=== PATIENT | female | born 1930 | race Caucasian/White ===

== ENCOUNTER 2017-03-15 13:32 | Inpatient (IN) ==
--- NOTE | 2017-03-15 14:24 | XRay Report ---
Exam: XR chest 1V portable Date: 03/15/2017 1:57 PM Indication: Altered mental status Comparison: 10/10/2016 Findings: AP portable a left base pleural effusion with a small effusion in the right chest along the minor fissure and right base present. There is obscuration of left hemidiaphragm. ASVD is present. Left upper arm stent present. Impression: 1. Increasing effusions present bilaterally with component of underlying cardiac decompensation CHF 2. Left-sided stents present in the upper arm. PROCEDURE INTERPRETED AT [facility] DEPARTMENT OF RADIOLOGY Final Report Signed by: Dr. Ran Evans
--- NOTE | 2017-03-15 14:33 | Emergency Department Note ---
Abigail Bautista Gwan, am scribing for, and in the presence of, Pedro Guadalupe MD 14:27 . Anayeli Bautista James D, MD, personally performed the services described in this documentation, ascribed by Javed Hayes in my presence, and it is both accurate and complete 431 . Arrival - Arrival Chief Complaint: Altered Mental Status Stated Complaint: possible stroke ED Nursing Triage Note: C/o confusion-onset upon waking this morning. Also reports generalized weakness and unable to walk. Mode of Arrival: Wheelchair Limitations: No Limitations Source: Patient, Family, Old Records Reviewed, RN Notes Reviewed Time Seen by Provider: 03/15/17 13:55 - History of Present Illness HPI Narrative: Patient is a 87 y/o female who presents to the ED for further evaluation for generalized weakness with an onset last night. Patient stated that her associated sxs have been lightheadedness upon standing up, the inability to walk and SOB. Patient family confirmed that pt has renal failure (dialysis M/W/F ), that pt dialyzed yesterday and that pt is followed by Dr. Miranda. Family continued to note that due to renal failure, pt does not void much. Patient denies any dysuria. Pt has a PMHx of CAD and HTN. Onset (ago): hour(s) Consistency: constant Severity: moderate Date of Last Menstrual Period: menopause Allergies/Adverse Reactions: Allergies Allergy/AdvReac Type Severity Reaction Status Date / Time propoxyphene Allergy ITCHING Verified 10/06/16 19:52 [From Darvocet-N 100] Home Medications: Home Medications Medication Instructions Recorded Confirmed Type Calcium Acetate 2 capsule PO TID W/MEALS 10/07/16 03/15/17 History Acetaminophen Tab [Tylenol Tab] 650 mg PO Q6H PRN #0 tablet 10/12/16 03/15/17 Rx Levothyroxine Tab [Synthroid Tab] 25 mcg PO DAILY@0700 #30 tablet 10/12/1603/15 Rx Tramadol HCl [Tramadol Tab] 50 mg PO Q6H PRN #30 tablet 10/12/16 03/15/17 Rx Metoprolol Tartrate Tab [Lopressor 25 mg PO QAM 03/15/17 03/15/17 History Tab] Review of System - Review of System 12 point system: reviewed and no additional remarkable complaints except as stated - Review of System Constitutional: Present: as per HPI, other (lightheadedness; can't walk). Absent: chills, night sweats, weakness Eyes: Absent: discharge Head/Ears/Nose/Throat: Absent: earache Respiratory: Absent: cough Cardiovascular: Absent: chest pain, palpitations Gastrointestinal: Absent: abdominal pain, nausea, vomiting Neurological: Present: as per HPI. Absent: weakness, other (lightheadedness) Medical,Surgical,& Family Hx - Medical History Cardio: History of: CAD, Hypertension HEENT: History of: Glaucoma Rheumatology: History of;: Rheumatoid Arthritis Renal: History of: Dialysis (MWF), Renal Failure Hematology: History of: Anemia - Surgical History Cardiac Surgeries: Sugical HX of: Vascular Access Devices (dialysis catheter and fistula) Thoracic Surgeries: Patient denies;: Organ Transplant, Lobectomy Neurologic Surgeries: Patient denies: Neurologic Surgery HEENT Surgeries: Patient denies: Eye Surgery, Thyroid Surgery, Tonsilectomy & Adenoidectomy Abdominal Surgeries: Patient denies: Abdominal Surgery Reproductive Surgeries: Patient denies;: Genitourinary Surgery, Gynecologic Surgery - Family History Family History: Reports;: Family Cancer (father, melanoma), Family Hypertension - Social History Smoking Status: Former smoker Frequency of Alcohol Use: None Type of Drug Use: None Exam Physical Examination: GENERAL: This is a chronically ill-appearing white female in no apparent distress. VITAL SIGNS: HEENT: Head is normocephalic and atraumatic. Pupils are equally round and reactive to light. Extraocular movement are intact. Oropharynx is benign with moist mucous membranes. NECK: Neck is soft and supple without tenderness. There are no masses. There is no lymphadenopathy. LUNGS: Decreased breath sounds left base. Chest rises symmetrically. There is no chest wall tenderness. CV: Heart is regular rate and rhythm without murmurs, rubs, or gallops. ABDOMEN: Abdomen is soft, non-tender to palpation. There are no abnormal masses palpated. There is no organomegaly. Bowel sounds are present and active. SKIN: Skin is warm and dry. No rash. EXTREMITIES: Patient has full range of motion without tenderness. There is no pedal edema. NEUROLOGIC: Awake, alert, oriented to person. Cranial nerves II through XII are grossly intact. Patient has generalized motor weakness without sensory deficits. PSYCHIATRIC: Normal affect. Normal mood. Vital Signs: Vital Signs Temperature 98.0 F 03/15/17 13:41 Pulse Rate 84 03/15/17 13:41 Respiratory Rate 18 03/15/17 13:41 Blood Pressure 152/65 03/15/17 13:41 O2 Sat by Pulse Oximetry 99 03/15/17 13:41 Results - Labs CBC & BMP: 03/15/17 15:25 Lab Results: I have reviewed the patients labs - Diagnostic Findings Procedure: Chest x-ray: image reviewed by me (Left pleural effusion, AV graft present in the left arm.) Disposition Clinical Impression: Generalized weakness, End-stage renal disease on hemodialysis, Large left pleural effusion Case discussed with: patient Disposition: Still a Patient Condition: Stable Time of Disposition: 15:48
[2017-03-15 15:34] LABS: Basophils # 0.1 10*3/uL (0.0-0.2); Basophils % 1.1 % (0.0-0.8); Eosinophils # 0.3 10*3/uL (0.0-0.87); Eosinophils % 6.8 % (0.00-10.9); Hematocrit 31.5 VOL% (35.7-47.0); Hemoglobin 10.3 GM/DL (12.0-16.0); Immature Granulocytes % 0.5 %; Immature Granulocytes Absolute 0.02 #; Lymphocytes # 1.4 10*3/uL (1.4-4.0); Mean Corpuscular HGB Conc 32.7 GM/DL (32-36); Mean Corpuscular Hemoglobin 30 PG (27-34); Mean Corpuscular Volume 92.1 FL (87-102); Mean Platelet Volume 12.3 FL (9.6-12.0); Monocytes # 1.2 10*3/uL (0.11-0.8); Monocytes % 27.8 % (1.7-12.7); Neutrophils # 1.4 10*3/uL (1.4-7.4); Neutrophils % 32.8 % (38.7-73.9); Platelet Count 96 T/CUMM (130-400); Red Blood Count 3.42 MC/CUMM (3.8-5.5); Red Cell Distribution Width 17.3 % (9.3-17.3); White Blood Count 4.4 T/CUMM (4-12)
[2017-03-15 15:45] LABS: INR 1.2; PT Patient Result 12.4 SECS
[2017-03-15 16:01] LABS: Albumin 2.4 G/DL (3.4-5.0); Bilirubin,Total 0.8 MG/DL (0.2-1.0); Calcium 8.3 MG/DL (8.5-10.1); Osmolality,Calculated 278.5 MOS/KG (273-304); Potassium 3.6 MMOL/L (3.5-5.1); Thyroid Stimulating Hormone 3.6 uIU/ml (0.358-3.74); Troponin I Only 0.022 NG/ML (0.00-0.045)
--- NOTE | 2017-03-15 16:03 | CT Report ---
CT head/brain wo con Indication: Generalized weakness. Comparison: None. Technique: CT of the brain was performed without administration of intravenous contrast. The CT examination was performed using one or more of the following dose reduction techniques: Automatic exposure control, adjustment of the mA and kV according to patient size, use of acute or iterative reconstruction techniques. Findings: There is no evidence of acute intracranial mass, hemorrhage, or infarction. Generalized cerebral atrophy is present. Areas of decreased attenuation within the periventricular white matter and cerebral white matter are present which could be compatible with microvascular ischemia. Small lacunar infarction within the left thalamus is demonstrated. The basal cisterns are patent. No significant abnormality is demonstrated to involve the posterior fossa or cerebellum. Orbits and globes demonstrate no evidence of significant pathology. The paranasal sinuses are clear. No significant abnormality is demonstrated to involve the mastoid air cells. The calvarium and overlying soft tissues demonstrate no evidence of acute pathology. Impression: 1. No CT evidence of acute intracranial pathology. Generalized atrophy and findings compatible with microvascular ischemia are present. 2. Lacunar infarction left thalamus is present. 03/15/2017 4:00 PM PROCEDURE INTERPRETED AT [facility] DEPARTMENT OF RADIOLOGY Final Report Signed by: Dr. Leandro Chatman
[2017-03-15] MEDS ORDERED: VANCOMYCIN INJ 750 MG in SODIUM CHLORIDE 0.9% 250 ML IV STA ×2 (16:54→22:52)
[2017-03-15] MEDS ORDERED: ACETAMINOPHEN 325 MG TABLET PO PRN (17:08)
--- NOTE | 2017-03-15 17:12 | CT Report ---
CT chest w con Indication: Left-sided pleural effusion. Comparison: None. Technique: CT of the chest was performed following the administration of intravenous contrast. The CT examination was performed using one or more of the following dose reduction techniques: Automatic exposure control, adjustment of the mA and kV according to patient size, or iterative reconstruction techniques. Findings: Bilateral pleural effusions redemonstrated. Left-sided pleural effusion appears loculated and wraps around the anterior aspect of the chest. Anterior component of the pleural effusion measures up to 2.9 cm. Posteriorly within the mid to lower left chest, the pleural effusion measures up to 4.2 cm. Additional right sided posterior pleural effusion is demonstrated with some fluid extending into the major fissure. The right-sided pleural effusion measures 2.1 cm. Near total atelectasis of the left lower lobe as well as moderate atelectasis of the lingula is present. Each lung within the aerated portion of the lung demonstrates thickened interlobular septal lines with some motion blurring of the lungs noticeable. Minimal bronchial wall thickening is present bilaterally. Enlarged lymph nodes are noted within the prevascular space lymph nodes measuring up to 9-10 mm in short axis dimension. AP window lymph nodes additionally are borderline in size to minimally enlarged measuring 9-10 mm. Subcarinal lymph nodes are borderline in size to minimally enlarged measuring 1.3 cm. Pulmonary artery is upper limits of normal in size measuring up to 3.1 cm. No filling defects are clearly demonstrated to suggest presence of pulmonary artery embolus. Segmental and subsegmental branches within the upper lobes are not well visualized secondary to motion. Subsegmental branches within the lower lungs are not well visualized. Heart size appears enlarged. Coronary artery calcifications are noted within the left and right coronary circulation. Esophagus is not well visualized. Bony structures of the chest appear grossly intact. Degenerative changes of the thoracic spine are diffuse and mild to moderate with regard in severity. No acute fractures are present. Soft tissues and musculature of the chest wall, lower neck, and imaged structures within the upper abdomen demonstrate no evidence of acute pathology. Spleen is normal in size. Multiple well-circumscribed hypoattenuating lesions are noted within the liver the largest of which measures up to 4.4 cm within the left hepatic lobe. Smaller slightly more anterior is centimeter to subcentimeter lesions image #96 and adjacent posterior margin of the lateral segment left hepatic lobe image #112 are present. These may represent cysts. Impression: 1. Bilateral pleural effusions are present as detailed compatible given history. 2. Atelectasis of the left lower lobe and lingula are present as detailed. 3. The appearance of the lung parenchyma is differential considerations including infection as well as pulmonary edema. 4. Adenopathy within the mediastinum may reflect reactive etiology. Neoplastic etiology is not excluded. 5. Hepatic cysts are suggested. 03/15/2017 5:04 PM PROCEDURE INTERPRETED AT [facility] DEPARTMENT OF RADIOLOGY Final Report Signed by: Dr. Leandro Chatman
--- NOTE | 2017-03-15 17:35 | Hospitalist History & Physical ---
Assessment and Plan - Time spent with patient Time spent with patient: Greater than 30 minutes (1) Shortness of breath Status: Acute Assessment and plan: 87-year-old white female with history of hypertension admitted by the hospitalist service with generalized weakness and shortness of breath. She is found to have some significant bilateral pleural effusions and a lacunar infarct. There is also most likely some underlying dementia as well. IR has already been consulted for thoracentesis for these effusions and these will be sent for culture. Have restarted her home medicines. Have also ordered a UA to check for urinary tract infection as well. Dr. Marcus has seen and examined patient and further recommendations to follow. Current Visit: Yes (2) End stage renal disease on dialysis Status: Chronic Current Visit: No (3) bilateral lower lobe infiltrates Status: Acute Current Visit: No (4) Generalized weakness Status: Acute Current Visit: Yes History of Present Illness Chief complaint: Confusion and weakness History of present illness: Ms. Sidhu is a 87 year old female with history of end-stage renal disease on HD , hypertension and hypothyroidism presenting to the ED with a one-week history of progressive confusion and weakness. Majority of the history came from patient's son who states that she has become increasingly more confused over the last week where she is walking into the wrong room and talking out of her head. He states today when she got up she could not even walk and he had to carry her around. Patient denies headache, dysphasia, abdominal pain, constipation, or lower extremity edema. She does state she feels some tightness in her chest when she deep breathes and some shortness of breath. She does not admit to being confused. She is afebrile and her blood pressure is up a little bit to 161/59. Her labs are relatively normal. Chest x-ray shows some increasing effusions present bilaterally with underlying cardiac decompensation. CT of the chest was ordered and reveals bilateral pleural effusions, atelectasis of the left lower lobe and lingula, appearance of the lung parenchyma has differential of infection versus pulmonary edema, adenopathy within the mediastinum, neoplastic etiology not excluded. CT of the head shows lacunar infarction of the left thalamus. After discussion with Dr. Guadalupe the ED physician and Dr. Marcus the admitting hospitalist, it was agreed patient would be admitted for evaluation and treatment. Home Medications Medication Instructions Recorded Confirmed Type Calcium Acetate 2 capsule PO TID W/MEALS 12/10/16 05/18/17 History Acetaminophen Tab [Tylenol Tab] 650 mg PO Q6H PRN #0 tablet 10/12/16 03/15/17 Rx Levothyroxine Tab [Synthroid Tab] 25 mcg PO DAILY@0700 #30 tablet 10/12/1603/15 Rx Tramadol HCl [Tramadol Tab] 50 mg PO Q6H PRN #30 tablet 10/12/16 03/15/17 Rx Metoprolol Tartrate Tab [Lopressor 25 mg PO QAM 03/15/17 03/15/17 History Tab] Allergies Allergy/AdvReac Type Severity Reaction Status Date / Time propoxyphene Allergy ITCHING Ver[facility] 10/06/16 19:52 [facility] Medical,Surgical,& Family Hx - Medical History Cardio: History of: CAD, Hypertension HEENT: History of: Glaucoma Rheumatology: History of;: Rheumatoid Arthritis Renal: History of: Dialysis (MWF), Renal Failure Hematology: History of: Anemia - Surgical History Cardiac Surgeries: Sugical HX of: Vascular Access Devices (dialysis catheter and fistula) Thoracic Surgeries: Patient denies;: Organ Transplant, Lobectomy Neurologic Surgeries: Patient denies: Neurologic Surgery HEENT Surgeries: Patient denies: Eye Surgery, Thyroid Surgery, Tonsilectomy & Adenoidectomy Abdominal Surgeries: Surgical HX of: Cholecystectomy Reproductive Surgeries: Patient denies;: Genitourinary Surgery, Gynecologic Surgery - Family History Family History: Reports;: Family Cancer (father, melanoma), Family Hypertension - Social History Smoking Status: Former smoker Frequency of Alcohol Use: None Type of Drug Use: None Marital Status: Single Lives With:: Children Functional capacity: independent ambulation Review of systems: A complete 10 system review of systems was obtained and pertinent positives and negatives per HPI Exam - Constitutional Vitals: Period Temp Pulse Resp BP Sys/Romo Pulse Ox Last 24 Hr 98.2 F 101 20 161/59 93 Exam: Constitutional System: No distress. [No] tremulousness. Head: Normocephalic, atraumatic. Ears, Nose and Throat System: No evidence of Otitis or Mastoiditis. No epistaxis or discharge Eyes System: Pupils equal, round, and reactive. Extraocular muscles intact. Neck: Supple, without adenopathy, [No] jugular venous distention. No thyromegaly , neck mass, or prior surgery apparent. Respiratory System: Chest crackles bilaterally to auscultation. Cardiovascular System: Heart with [regular] rate and rhythm. [No] murmur. GI System: Abdomen [soft], [non]tender. [Normo]active bowel sounds present. Musculoskeletal System: limbs with [no] pedal edema. [Full] distal pulses. Neurological System: [No discernable] sensory deficit. [No] aphasia Psychiatric System: Some confusion noted Results - Labs CBC & BMP: 03/15/17 15:25 03/15/17 15:25 Lab Results: I have reviewed the past 24 hour labs - Diagnostic Findings Procedure: Chest x-ray: report reviewed by me (Increasing effusions present bilaterally with component of underlying cardiac decompensation), CT - chest: report reviewed by me (Bilateral pleural effusions present. Atelectasis of the left lower lobe and lingula. Appearance of the lung parenchyma is differential considerations including infection as well as pulmonary edema. Adenopathy within the mediastinum may reflect reactive etiology. Neoplastic etiology is not excluded. Hepatic cysts are suggested), CT: report reviewed by me (CT the head shows lacunar infarction left thalamus)
[2017-03-15] MEDS: ENOXAPARIN 30 MG/0.3 ML SYRINGE SUBCUT SCH (18:26)
[2017-03-15] MEDS: CALCIUM ACETATE 667 MG CAPSULE PO SCH (18:26)
[2017-03-15 18:41] LABS: Eosinophils 9 % (0-10); Lymphocytes 24 % (20-55); Metamyelocytes 2 %; Platelet Estimate Decreased; Segmented Neutrophils 57 % (50-85); Total Cells Counted 100
[2017-03-15 18:42] LABS: Polychromasia Few
--- NOTE | 2017-03-16 06:53 | XRay Report ---
Exam: XR chest 1V Date: 03/16/2017 4:00 AM Comparison: 03/15/2017 Indication: Pneumothorax Technique:[Portable AP sitting chest Findings: Stable cardiomegaly with progressive diffuse parenchymal findings with enlarging right small to moderate and persistent moderate size left pleural effusion. No pneumothorax with stable mediastinum. Prior cholecystectomy with multiple metallic stents in the left arm. Degenerative changes are noted.] Impression: Progressive significant pulmonary edema/bilateral infiltration with enlarging small to moderate right and moderate left pleural effusions. Follow-up chest x-ray recommended. PROCEDURE INTERPRETED AT [facility] DEPARTMENT OF RADIOLOGY Final Report Signed by: Dr. Neida Brown
[2017-03-16] MEDS: LEVOTHYROXINE 25 MCG TABLET PO SCH (07:04)
[2017-03-16 07:34] LABS: Basophils # 0.1 10*3/uL (0.0-0.2); Basophils % 1.2 % (0.0-0.8); Eosinophils # 0.3 10*3/uL (0.0-0.87); Eosinophils % 6.8 % (0.00-10.9); Hematocrit 30.2 VOL% (35.7-47.0); Hemoglobin 9.9 GM/DL (12.0-16.0); Immature Granulocytes % 0.4 %; Immature Granulocytes Absolute 0.02 #; Lymphocytes # 1.3 10*3/uL (1.4-4.0); Lymphocytes % 26.5 % (21.3-54.2); Mean Corpuscular HGB Conc 32.8 GM/DL (32-36); Mean Corpuscular Hemoglobin 30 PG (27-34); Mean Corpuscular Volume 90.7 FL (87-102); Mean Platelet Volume 12.5 FL (9.6-12.0); Monocytes # 1.1 10*3/uL (0.11-0.8); Monocytes % 23.5 % (1.7-12.7); Neutrophils % 41.6 % (38.7-73.9); Platelet Count 103 T/CUMM (130-400); Red Blood Count 3.33 MC/CUMM (3.8-5.5); Red Cell Distribution Width 17.3 % (9.3-17.3); White Blood Count 4.9 T/CUMM (4-12)
[2017-03-16 07:57] LABS: Calcium 8.1 MG/DL (8.5-10.1); Magnesium 2.2 MG/DL (1.8-2.4); Osmolality,Calculated 281.4 MOS/KG (273-304); Potassium 3.9 MMOL/L (3.5-5.1)
[2017-03-16 07:58] LABS: Eosinophils 7 % (0-10); Lymphocytes 28 % (20-55); Segmented Neutrophils 56 % (50-85); Total Cells Counted 100
[2017-03-16 07:59] LABS: Hypochromasia 1+; Ovalocytes Slight; Platelet Estimate Decreased
[2017-03-16] MEDS: PANTOPRAZOLE 40 MG TABLET PO SCH (09:15)
[2017-03-16] MEDS: CALCIUM ACETATE 667 MG CAPSULE PO SCH ×3 (09:15→18:25)
--- NOTE | 2017-03-16 09:39 | Post Interventional Procedure ---
Pre-op diagnosis: pleural effusion Post-op diagnosis: same Procedure: Left thoracentesis w/ US guidance Radiologist: Aaron Soto Anesthesia: local Specimens: other (1200 cc straw colored fluid to lab) Estimated blood loss: none Complications: none Condition: stable Assessment and Plan - Time spent with patient Time spent with patient: Less than 30 minutes
--- NOTE | 2017-03-16 09:42 | Ultrasound Report ---
US thoracentesis Indication: Left pleural effusion. ULTRASOUND-GUIDED THORACENTESIS Description: A formal timeout was performed. Maximum sterile barrier technique was used. A left pleural effusion was identified with ultrasound. The left back was prepped and draped in sterile fashion. Under sonographic guidance, a 6 Swazi pigtail catheter was advanced into the effusion using trocar technique. A captured sonographic image documents needle position. The needle was removed. Through the catheter, we obtained a total of 1200 cc of straw-colored, clear fluid. The catheter was removed. A bandage was placed at the puncture site. The patient tolerated the procedure well. Chest radiograph is pending. Specimen: 1200 cc straw-colored fluid for laboratory. Impression: Ultrasound-guided thoracentesis. PROCEDURE INTERPRETED AT [facility] DEPARTMENT OF RADIOLOGY Final Report Signed by: Aaron Soto M.D.
--- NOTE | 2017-03-16 09:46 | XRay Report ---
XR chest post procedure Indication: Thoracentesis. Post procedure chest radiograph, 2 views: Inspiratory and expiratory views of the chest were obtained. Since earlier today, left pleural effusion has been reduced in quantity significantly. Bilateral pleural effusions persist, now [id number] but symmetric. No pneumothorax shown. Cardiomegaly and coarsened interstitial markings of the lungs appear stable. Impression: Reduced left pleural effusion. No pneumothorax. PROCEDURE INTERPRETED AT [facility] DEPARTMENT OF RADIOLOGY Final Report Signed by: Aaron Soto M.D.
[2017-03-16 11:17] LABS: Eosinophils,Pleural Fluid 1 %; Lymphocytes,Pleural Fluid 99 %
[2017-03-16 11:18] LABS: RBC,Pleural Fluid 337 T/CUMM
[2017-03-16 11:57] LABS: Amylase,Body Fluid 19 U/L; Glucose,Pleural Fluid 94 MG/DL; LDH,Body Fluid 64 U/L; Total Protein,Body Fluid < 2.0 G/DL
--- NOTE | 2017-03-16 13:28 | Nephrology Consult Note ---
History of Present Illness Chief complaint: ESRD History of present illness: Ms. Sidhu is a 87 year old female brought to the ER by family for confusion. She has had episodes of confusion recently which were transient. She denies any focal neurologic deficits. She has ESRD. She dialyzes in [place] Home Medications Medication Instructions Recorded Confirmed Type Calcium Acetate 2 capsule PO TID W/MEALS 10/07/16 03/15/17 History Acetaminophen Tab [Tylenol Tab] 650 mg PO Q6H PRN #0 tablet 10/12/16 03/15/17 Rx Levothyroxine Tab [Synthroid Tab] 25 mcg PO DAILY@0700 #30 tablet 10/12/1603/15 Rx Tramadol HCl [Tramadol Tab] 50 mg PO Q6H PRN #30 tablet 10/12/16 03/15/17 Rx Metoprolol Tartrate Tab [Lopressor 25 mg PO QAM 03/15/17 03/15/17 History Tab] Allergies Allergy/AdvReac Type Severity Reaction Status Date / Time propoxyphene Allergy ITCHING Verified 10/06/16 19:52 [From Darvocet-N 100] Medical,Surgical,& Family Hx - Medical History Cardio: History of: CAD, Hypertension Neurology: No history of: Seizures HEENT: History of: Glaucoma Rheumatology: History of;: Rheumatoid Arthritis Renal: History of: Dialysis (MWF), Renal Failure Hematology: History of: Anemia - Surgical History Cardiac Surgeries: Sugical HX of: Vascular Access Devices (dialysis catheter and fistula) Thoracic Surgeries: Patient denies;: Organ Transplant, Lobectomy Neurologic Surgeries: Patient denies: Neurologic Surgery HEENT Surgeries: Patient denies: Eye Surgery, Thyroid Surgery, Tonsilectomy & Adenoidectomy Abdominal Surgeries: Surgical HX of: Cholecystectomy Patient denies: Abdominal Surgery Reproductive Surgeries: Patient denies;: Genitourinary Surgery, Gynecologic Surgery - Family History Family History: Reports;: Family Cancer (father, melanoma), Family Hypertension - Social History Smoking Status: Former smoker Frequency of Alcohol Use: None Type of Drug Use: None Review of Systems 12 point system: reviewed and no additional remarkable complaints except as stated Exam - Vital Signs Vital signs: Period Temp Pulse Resp BP Sys/Romo Pulse Ox Last 24 Hr 97.6 F-99.8 F 86-104 16-24 92-165/41-67 91-100 Exam: Gen.: Alert and oriented x3. ENT: Pupils equal round reactive to light. EOMs intact. Mucous membranes moist. Neck: Supple. No JVD or bruit. Cardiovascular: Regular rate and rhythm. No murmur rub or gallop Lungs: Clear Abdomen: Soft. Nontender. Positive bowel sounds. No organomegaly Extremities: No edema Results - Labs CBC & BMP: 03/16/17 05:34 03/16/17 05:34 Assessment and Plan (1) End-stage renal disease on hemodialysis Status: Acute Assessment and plan: 87-year-old woman admitted with: * ESRD. Dialysis today * Confusion. This has improved since admission. She has microvascular disease as well as remote lacunar CVA. She has some degree of dementia * Pleural effusion. Status post thoracentesis. Studies are pending * Pulmonary hypertension * Cardiomyopathy * Anemia Current Visit: Yes (2) Pleural effusion Status: Acute Current Visit: Yes (3) Cerebrovascular disease Status: Acute Current Visit: Yes (4) Generalized weakness Status: Acute Current Visit: Yes (5) Anemia Status: Chronic Current Visit: No Qualifiers: Other causes of anemia: chronic disease, kidney (6) COPD (chronic obstructive pulmonary disease) Status: Chronic Current Visit: No Qualifiers: COPD type: COPD with acute exacerbation Qualified Code(s): J44.1 - Chronic obstructive pulmonary disease with (acute) exacerbation (7) Pulmonary hypertension Status: Chronic Current Visit: No
--- NOTE | 2017-03-16 16:15 | Hospitalist Progress Note ---
Assessment and Plan (1) Generalized weakness Status: Acute Assessment and plan: The patient was admitted with confusion and weakness. I am concerned that this could represent sepsis. Antibiotic was given and blood cultures were taken is no growth so far and we still await the results of the thoracentesis studies. If the patient's mental status improved towards baseline I anticipate discharge home soon. Current Visit: Yes (2) End-stage renal disease on hemodialysis Status: Acute Current Visit: Yes (3) Pleural effusion Status: Acute Current Visit: Yes Hospitalist: Subjective Interval history: The patient has less confusion today. The patient had dialysis today. The patient has had thoracentesis and we await results of her fluid studies. The patient was given vancomycin the time of admission. Blood cultures revealed no growth so far. Exam - Constitutional Vitals: Period Temp Pulse Resp BP Sys/Romo Pulse Ox Last 24 Hr 97.6 F-99.8 F 86-104 16-24 92-165/41-67 91-100 General appearance: mild distress - Respiratory Respiratory exam: Present: clear to auscultation bilaterally - Cardiovascular Cardiovascular exam: Present: regular rate and rhythm - GI/Abdominal GI/Abdominal exam: Present: normal bowel sounds Results - Labs CBC & BMP: 03/16/17 05:34 03/16/17 05:34 Lab Results: I have reviewed the past 24 hour labs
--- NOTE | 2017-03-16 16:30 | Dialysis Note ---
Dialysis Note - Dialysis Note Seen during dialysis. Blood pressure stable. UF goal decreased
[2017-03-16] MEDS: ENOXAPARIN 30 MG/0.3 ML SYRINGE SUBCUT SCH (18:23)
[2017-03-17] MEDS: LEVOTHYROXINE 25 MCG TABLET PO SCH (07:10)
[2017-03-17] MEDS: PANTOPRAZOLE 40 MG TABLET PO SCH (09:49)
[2017-03-17] MEDS: CALCIUM ACETATE 667 MG CAPSULE PO SCH ×3 (09:49→18:14)
--- NOTE | 2017-03-17 10:16 | Hospitalist Progress Note ---
Assessment and Plan (1) Generalized weakness Status: Acute Assessment and plan: The patient was admitted with confusion and weakness. I am concerned that this could represent sepsis. Antibiotic was given and blood cultures were taken is no growth so far and thoracentesis cultures also negative. We will check MRI scan and ask for neurology consultation. Current Visit: Yes (2) End-stage renal disease on hemodialysis Status: Acute Current Visit: Yes (3) Pleural effusion Status: Acute Current Visit: Yes Hospitalist: Subjective Interval history: The patient continues with lethargy. The family states she is still confused and worse than yesterday. The patient does not complain of pain or shortness of breath. The patient had dialysis yesterday. Exam - Constitutional Vitals: Period Temp Pulse Resp BP Sys/Romo Pulse Ox Last 24 Hr 97.6 F-100.1 F 86-98 16-20 105-131/44-62 90-97 General appearance: no acute distress - Respiratory Respiratory exam: Present: clear to auscultation bilaterally - Cardiovascular Cardiovascular exam: Present: regular rate and rhythm - GI/Abdominal GI/Abdominal exam: Present: normal bowel sounds Results - Labs CBC & BMP: 03/16/17 05:34 03/16/17 05:34 Lab Results: I have reviewed the past 24 hour labs
--- NOTE | 2017-03-17 13:49 | Magnetic Resonance Report ---
MR head/brain wo con Indication: Altered mental status. Comparison: CT head 03/15/2017. Technique: Using 1.5 Arabella magnet, multisequence multiplanar MR imaging of the brain was performed without the administration of intravenous contrast. Findings: Restricted diffusion is demonstrated involving the medial cortex of the left occipital lobe and posterior cortex of the left occipital lobe with anterior extension into the medial cortex of the left temporal lobe. Additional small focus of restricted diffusion is noted within the left thalamus. Corresponding areas of increased T2 and FLAIR signal distally are present suggesting that this represents subacute infarction. Generalized cerebral atrophy is present. There is no evidence of acute intracranial hemorrhage, mass, or infarction. Ventricular system demonstrates no evidence of acute pathology. Scattered T2/FLAIR signal hyperintensities are noted bilaterally within the periventricular white matter as well as the bilateral centrum semiovale. These are most compatible with microvascular ischemic changes. The basal cisterns appear patent. The arterial flow voids appear intact. The posterior fossa as well as cerebellum demonstrate no evidence of acute pathology. The orbits and globes demonstrate no evidence of acute pathology. The paranasal sinuses and mastoid air cells demonstrate no evidence of significant mucoperiosteal thickening. The calvarium as well as the soft tissues overlying the calvarium demonstrate no evidence of acute pathology. No unexpected areas of enhancement are demonstrated within the brain, meninges, or orbits. Impression: 1. Subacute infarction involving the medial cortex of the left occipital and temporal lobes and posterior cortex of the left occipital lobe is present with additional involvement of the thalamus suggested. 2. Generalized atrophy. 3. Findings compatible with microvascular ischemia. 03/17/2017 1:44 PM PROCEDURE INTERPRETED AT [facility] DEPARTMENT OF RADIOLOGY Final Report Signed by: Dr. Leandro Chatman
--- NOTE | 2017-03-17 14:46 | Nephrology Progress Note ---
Nephrology - PN: Subj Interval history: She is awake and alert but continues to have some problems with confusion. Exam (PN)-Nephrology - Vital Signs Vital signs: Period Temp Pulse Resp BP Sys/Romo Pulse Ox Last 24 Hr 97.7 F-100.1 F 88-98 16-20 93-131/44-62 90-99 Exam: ENT: Normal Cardiovascular: Regular rate and rhythm. No murmur rub or gallop Lungs: Clear Extremities: No edema - Lab 03/16/17 05:34 03/16/17 05:34 Most recent lab results Calcium 8.1 MG/DL (8.5-10.1) L 03/16/17 05:34 Magnesium 2.2 MG/DL (1.8-2.4) 03/16/17 05:34 Assessment and Plan (1) End-stage renal disease on hemodialysis Status: Acute Assessment and plan: 87-year-old woman admitted with: * ESRD. Dialysis today * Confusion. MRI done today shows subacute CVA on the left. Neurology consult pending * Pleural effusion. Status post thoracentesis. Studies are pending * Pulmonary hypertension * Cardiomyopathy * Anemia Current Visit: Yes (2) Pleural effusion Status: Acute Current Visit: Yes (3) Cerebrovascular disease Status: Acute Current Visit: Yes (4) Generalized weakness Status: Acute Current Visit: Yes (5) Anemia Status: Chronic Current Visit: No Qualifiers: Other causes of anemia: chronic disease, kidney (6) COPD (chronic obstructive pulmonary disease) Status: Chronic Current Visit: No Qualifiers: COPD type: COPD with acute exacerbation Qualified Code(s): J44.1 - Chronic obstructive pulmonary disease with (acute) exacerbation (7) Pulmonary hypertension Status: Chronic Current Visit: No
[2017-03-17] MEDS: ENOXAPARIN 30 MG/0.3 ML SYRINGE SUBCUT SCH (18:16)
[2017-03-18 04:32] LABS: Basophils # 0.1 10*3/uL (0.0-0.2); Basophils % 1.4 % (0.0-0.8); Eosinophils # 0.3 10*3/uL (0.0-0.87); Eosinophils % 5.3 % (0.00-10.9); Hematocrit 29.8 VOL% (35.7-47.0); Hemoglobin 9.9 GM/DL (12.0-16.0); Immature Granulocytes % 0.5 %; Immature Granulocytes Absolute 0.03 #; Lymphocytes # 1.8 10*3/uL (1.4-4.0); Lymphocytes % 29.9 % (21.3-54.2); Mean Corpuscular HGB Conc 33.2 GM/DL (32-36); Mean Corpuscular Hemoglobin 30 PG (27-34); Mean Corpuscular Volume 89.8 FL (87-102); Mean Platelet Volume 11.7 FL (9.6-12.0); Monocytes # 1.3 10*3/uL (0.11-0.8); Monocytes % 21.7 % (1.7-12.7); Neutrophils # 2.4 10*3/uL (1.4-7.4); Neutrophils % 41.2 % (38.7-73.9); Platelet Count 111 T/CUMM (130-400); Red Blood Count 3.32 MC/CUMM (3.8-5.5); Red Cell Distribution Width 17.4 % (9.3-17.3); White Blood Count 5.9 T/CUMM (4-12)
[2017-03-18 05:01] LABS: Calcium 8.8 MG/DL (8.5-10.1); Magnesium 2.2 MG/DL (1.8-2.4); Osmolality,Calculated 280.5 MOS/KG (273-304); Potassium 4.2 MMOL/L (3.5-5.1)
[2017-03-18 05:14] LABS: Eosinophils 7 % (0-10); Hypochromasia Slight; Lymphocytes 30 % (20-55); Segmented Neutrophils 45 % (50-85); Total Cells Counted 100
[2017-03-18 05:15] LABS: Microcytosis 1+; Ovalocytes Few; Platelet Estimate Decreased
[2017-03-18] MEDS: LEVOTHYROXINE 25 MCG TABLET PO SCH (06:51)
[2017-03-18] MEDS: PANTOPRAZOLE 40 MG TABLET PO SCH (09:32)
[2017-03-18] MEDS: CALCIUM ACETATE 667 MG CAPSULE PO SCH ×4 (09:32→16:48)
[2017-03-18] MEDS: ACETAMINOPHEN 325 MG TABLET PO PRN (11:59)
[2017-03-18] MEDS ORDERED: traMADol 50 MG TABLET PO PRN (13:14)
--- NOTE | 2017-03-18 13:19 | Hospitalist Progress Note ---
Assessment and Plan (1) Generalized weakness Status: Acute Assessment and plan: The patient was admitted with confusion and weakness. There is no evidence of sepsis. The patient does have a subacute stroke which is likely exacerbating her underlying dementia. I recommended to the family that we try her on Aggrenox and we await neurology evaluation tomorrow. Current Visit: Yes (2) End-stage renal disease on hemodialysis Status: Acute Current Visit: Yes (3) Pleural effusion Status: Acute Current Visit: Yes Hospitalist: Subjective Interval history: The patient was admitted to the hospital with lethargy and altered mental status. 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 The patient is slowly improving and is more alert today. The patient continues on dialysis 3 times weekly. Exam - Constitutional Vitals: Period Temp Pulse Resp BP Sys/Romo Pulse Ox Last 24 Hr 97.7 F-99.8 F 88-106 16-22 118-158/44-75 93-99 General appearance: no acute distress - Neck Neck exam: Present: normal inspection - Respiratory Respiratory exam: Present: clear to auscultation bilaterally - Cardiovascular Cardiovascular exam: Present: regular rate and rhythm - GI/Abdominal GI/Abdominal exam: Present: normal bowel sounds Results - Labs CBC & BMP: 03/18/17 03:24 03/18/17 03:24 Lab Results: I have reviewed the past 24 hour labs
--- NOTE | 2017-03-18 15:50 | Nephrology Progress Note ---
Nephrology - PN: Subj Interval history: She is easily awakened. She follows commands. Exam (PN)-Nephrology - Vital Signs Vital signs: Period Temp Pulse Resp BP Sys/Romo Pulse Ox Last 24 Hr 98.4 F-99.8 F 95-106 16-22 118-158/44-75 93-97 Exam: ENT: Normal Cardiovascular: Regular rate and rhythm. No murmur rub or gallop Lungs: Clear Extremities: No edema - Lab 03/18/17 03:24 03/18/17 03:24 Most recent lab results Calcium 8.8 MG/DL (8.5-10.1) 03/18/17 03:24 Magnesium 2.2 MG/DL (1.8-2.4) 03/18/17 03:24 Assessment and Plan (1) End-stage renal disease on hemodialysis Status: Acute Assessment and plan: 87-year-old woman admitted with: * ESRD. Dialysis MWF * Confusion. MRI done today shows subacute CVA on the left. Neurology consult pending. Aggrenox started * Pleural effusion. Status post thoracentesis. Cultures negative * Pulmonary hypertension * Cardiomyopathy * Anemia Current Visit: Yes (2) Pleural effusion Status: Acute Current Visit: Yes (3) Cerebrovascular disease Status: Acute Current Visit: Yes (4) Generalized weakness Status: Acute Current Visit: Yes (5) Anemia Status: Chronic Current Visit: No Qualifiers: Other causes of anemia: chronic disease, kidney (6) COPD (chronic obstructive pulmonary disease) Status: Chronic Current Visit: No Qualifiers: COPD type: COPD with acute exacerbation Qualified Code(s): J44.1 - Chronic obstructive pulmonary disease with (acute) exacerbation (7) Pulmonary hypertension Status: Chronic Current Visit: No
[2017-03-18] MEDS: ENOXAPARIN 30 MG/0.3 ML SYRINGE SUBCUT SCH (18:11)
[2017-03-18] MEDS: DIPYRIDAMOLE/ASPIRIN 200-25 MG CAPSULE PO SCH (20:59)
[2017-03-19] MEDS: ACETAMINOPHEN 325 MG TABLET PO PRN ×2 (00:56→11:14)
[2017-03-19] MEDS: LEVOTHYROXINE 25 MCG TABLET PO SCH (06:39)
[2017-03-19] MEDS: CALCIUM ACETATE 667 MG CAPSULE PO SCH ×3 (08:14→18:30)
[2017-03-19] MEDS: DIPYRIDAMOLE/ASPIRIN 200-25 MG CAPSULE PO SCH ×2 (08:14→21:13)
[2017-03-19] MEDS: PANTOPRAZOLE 40 MG TABLET PO SCH (08:14)
--- NOTE | 2017-03-19 11:28 | Hospitalist Progress Note ---
Assessment and Plan (1) Altered mental status Status: Acute Assessment and plan: Likely due to subacute CVA awaiting evaluation from neurology I will go ahead and order EKG and echocardiogram since the multiple area of the infarct cardiac source is a possibility Current Visit: Yes (2) Cerebrovascular disease Status: Acute Assessment and plan: See above Current Visit: Yes (3) Pleural effusion Status: Acute Assessment and plan: Transudate noted likely due to end-stage renal disease but also going to obtain echocardiogram Current Visit: Yes (4) Anemia Status: Chronic Assessment and plan: Stable Current Visit: No Qualifiers: Other causes of anemia: chronic disease, kidney (5) ESRD (end stage renal disease) Status: Chronic Current Visit: No Hospitalist: Subjective Interval history: Ms. Sidhu is a 87 year old female with history of end-stage renal disease on HD , hypertension and hypothyroidism presented with the confusion and per daughter she was not able to walk well. She was seen in the ER on 03/15/2017 and evaluated with a CT scan of the head which was negative. She was afebrile and her blood pressure was little elevated. On 03/17/2017 she underwent MRI and reported to have subacute infarction involving the medial cortex of the left occipital and temporal lobes and posterior cortex of the left lower lobe there was denial atrophy with microvascular ischemia also reported. She was started on Aggrenox by the hospitalist service neurology was consulted but not available over the weekend. She will be seen by Dr. Álvarez today. She also underwent left thoracentesis due to finding of pleural effusion. She is on hemodialysis and was last dialyzed on Sunday Patient is still appear to be confused cannot recognize her daughter she is not able to follow commands. She is applied to all the answers with nodding head positively. She did try to speak some. She mentioned that she recognized her daughter do not know who she is. Exam - Constitutional Vitals: Period Temp Pulse Resp BP Sys/Romo Pulse Ox Last 24 Hr 97.1 F-98.6 F 86-103 17-20 118-168/57-75 91-100 General appearance: no acute distress - Respiratory Respiratory exam: Present: clear to auscultation bilaterally. Absent: rales, rhonchi - Cardiovascular Cardiovascular exam: Present: regular rate and rhythm. Absent: tachycardia - GI/Abdominal GI/Abdominal exam: Present: normal bowel sounds, soft. Absent: distended, tenderness - Extremities Exam Extremities exam: Absent: edema - Neurological Exam Neurological exam: Present: other (Awake and alert but not oriented appears confused) Results - Labs CBC & BMP: 03/18/17 03:24 03/18/17 03:24 Lab Results: I have reviewed the past 24 hour labs
--- NOTE | 2017-03-19 12:03 | EKG Report ---
Stationary ECG Study [facility] Test Date: 03/19/2017 12:01:55 PM Pat Name: CHRISTY CARBAJAL Department: Room: 338 Gender: F [employer] Taper: ALTAGRACIA : [id number] Requested by: Ramses Gallardo Order Number: [id number] Reading MD: GIOVANNA LOZA Intervals [place] Rate: 93 P: 58 TX: 180 QRS: 64 QRSD: 101 T: 37 QT: 362 QTc: 412 Interpretive Statements SINUS RHYTHM NONSPECIFIC T-WAVE ABNORMALITY Electronically Signed On 03-20-17 14:15:41 CDT by GIOVANNA LOZA [email or web address]
--- NOTE | 2017-03-19 12:35 | Nephrology Progress Note ---
Nephrology - PN: Subj Interval history: She is awake and alert. She is confused. Some of her answers make sense, others do not She denies shortness of breath chest pain or GI symptoms Exam (PN)-Nephrology - Vital Signs Vital signs: Period Temp Pulse Resp BP Sys/Romo Pulse Ox Last 24 Hr 97.1 F-98.6 F 86-103 17-20 118-168/57-75 91-100 Exam: ENT: Normal except for speech Cardiovascular: Regular rate and rhythm. No murmur rub or gallop Lungs: Clear Extremities: No edema - Lab 03/18/17 03:24 03/18/17 03:24 Most recent lab results Calcium 8.8 MG/DL (8.5-10.1) 03/18/17 03:24 Magnesium 2.2 MG/DL (1.8-2.4) 03/18/17 03:24 Assessment and Plan (1) End-stage renal disease on hemodialysis Status: Acute Assessment and plan: 87-year-old woman admitted with: * ESRD. Dialysis today * CVA. Neurology to see today * Pleural effusion. Status post thoracentesis. Cultures negative * Pulmonary hypertension * Cardiomyopathy * Anemia Current Visit: Yes (2) Pleural effusion Status: Acute Current Visit: Yes (3) Cerebrovascular disease Status: Acute Current Visit: Yes (4) Generalized weakness Status: Acute Current Visit: Yes (5) Anemia Status: Chronic Current Visit: No Qualifiers: Other causes of anemia: chronic disease, kidney (6) COPD (chronic obstructive pulmonary disease) Status: Chronic Current Visit: No Qualifiers: COPD type: COPD with acute exacerbation Qualified Code(s): J44.1 - Chronic obstructive pulmonary disease with (acute) exacerbation (7) Pulmonary hypertension Status: Chronic Current Visit: No
[2017-03-19] MEDS: ONDANSETRON 4 MG/2 ML VIAL IV PRN (13:23)
--- NOTE | 2017-03-19 17:04 | Event Note ---
Patient gone for dialysis
[2017-03-19] MEDS: ENOXAPARIN 30 MG/0.3 ML SYRINGE SUBCUT SCH (18:30)
[2017-03-20] MEDS: LEVOTHYROXINE 25 MCG TABLET PO SCH (06:48)
[2017-03-20 08:15] LABS: Basophils # 0.1 10*3/uL (0.0-0.2); Basophils % 0.7 % (0.0-0.8); Eosinophils # 0.2 10*3/uL (0.0-0.87); Eosinophils % 1.3 % (0.00-10.9); Hematocrit 34.1 VOL% (35.7-47.0); Hemoglobin 11.4 GM/DL (12.0-16.0); Immature Granulocytes % 0.9 %; Immature Granulocytes Absolute 0.17 #; Lymphocytes # 1.1 10*3/uL (1.4-4.0); Lymphocytes % 6.1 % (21.3-54.2); Mean Corpuscular HGB Conc 33.4 GM/DL (32-36); Mean Corpuscular Hemoglobin 30 PG (27-34); Mean Corpuscular Volume 89.7 FL (87-102); Mean Platelet Volume 12.5 FL (9.6-12.0); Monocytes # 3.2 10*3/uL (0.11-0.8); Monocytes % 17.1 % (1.7-12.7); Neutrophils # 13.6 10*3/uL (1.4-7.4); Neutrophils % 73.9 % (38.7-73.9); Platelet Count 158 T/CUMM (130-400); Red Cell Distribution Width 17.8 % (9.3-17.3); White Blood Count 18.4 T/CUMM (4-12)
--- NOTE | 2017-03-20 08:32 | CT Report ---
CT head/brain wo con Indication: Right facial droop Comparison: MRI brain dated March 17, [address] brain dated March 15, 2017 Technique: Multiple axial tomographic images of the brain were obtained without the use of intravenous contrast. Findings: There is hypoattenuation within the left thalamus as well as throughout the mesial left temporal lobe and left occipital lobe consistent with evolution of infarction demonstrated on comparison MRI. No significant midline shift or evidence of acute intracranial hemorrhage. Global volume loss present. Periventricular and subcortical hypoattenuation noted which is nonspecific but consistent with chronic microvascular ischemic change. Atherosclerotic calcifications present. Paranasal sinuses and mastoid air cells are clear. IMPRESSION: There is hypoattenuation within the left thalamus as well as throughout the mesial left temporal lobe and left occipital lobe consistent with evolution of infarction demonstrated on comparison MRI. The CT exam was performed using one or more of the following dose reduction techniques: Automated exposure control, adjustment of the mA and/or kV according to patient size, or use of iterative reconstruction technique. PROCEDURE INTERPRETED AT [facility] DEPARTMENT OF RADIOLOGY Final Report Signed by: Dr Saúl Lew
[2017-03-20 08:35] LABS: Calcium 8.8 MG/DL (8.5-10.1); Osmolality,Calculated 272.8 MOS/KG (273-304); Potassium 4.9 MMOL/L (3.5-5.1)
[2017-03-20 08:41] LABS: Eosinophils 1 % (0-10); Hypochromasia 1+; Lymphocytes 6 % (20-55); Ovalocytes Slight; Platelet Estimate Normal; Segmented Neutrophils 85 % (50-85); Total Cells Counted 100
[2017-03-20 08:42] LABS: Microcytosis Slight
[2017-03-20] MEDS: CALCIUM ACETATE 667 MG CAPSULE PO SCH ×3 (09:02→18:03)
[2017-03-20] MEDS: DIPYRIDAMOLE/ASPIRIN 200-25 MG CAPSULE PO SCH ×2 (09:02→22:05)
[2017-03-20] MEDS: PANTOPRAZOLE 40 MG TABLET PO SCH (09:02)
--- NOTE | 2017-03-20 09:02 | Hospitalist Progress Note ---
Assessment and Plan (1) Altered mental status Status: Acute Assessment and plan: Likely due to CVA awaiting evaluation from neurology. CT scan this morning revealed hypo-attenuation within the left thalamus and in left temporal lobe and left occipital lobe consistent with the evolution of infarction. Patient is on dipyridamole . Awaiting neurology recommendation. She had received a dose of tramadol yesterday I will go ahead and stop tramadol Current Visit: Yes (2) Cerebrovascular disease Status: Acute Assessment and plan: See above Current Visit: Yes (3) Pleural effusion Status: Acute Assessment and plan: Transudate noted likely due to end-stage renal disease but also going to obtain echocardiogram Current Visit: Yes (4) Anemia Status: Chronic Assessment and plan: Patient seem to have some improvement of the hemoglobin hematocrit and elevated with WBC count. No apparent source of infection but I will go ahead and do the blood cultures urine cultures and able to obtain. Also order chest x-ray. There is some tenderness in the abdomen on palpation I will go ahead and do a CT scan of the belly. Will review those results. Patient postdialysis and has poor p.o. intake will give her 250 cc IV fluid us little bit of IV fluid careful because of her age and end-stage renal disease status Current Visit: No Qualifiers: Other causes of anemia: chronic disease, kidney (5) ESRD (end stage renal disease) Status: Chronic Assessment and plan: On dialysis for dialyzed yesterday Current Visit: No (6) Leukocytosis Status: Acute Assessment and plan: See above the plan under anemia Current Visit: Yes Hospitalist: Subjective Interval history: Ms. Sidhu is a 87 year old female with history of end-stage renal disease on HD , hypertension and hypothyroidism presented with the confusion and per daughter she was not able to walk well. She was seen in the ER on 03/15/2017 and evaluated with a CT scan of the head which was negative. She was afebrile and her blood pressure was little elevated. On 03/17/2017 she underwent MRI and reported to have subacute infarction involving the medial cortex of the left occipital and temporal lobes and posterior cortex of the left lower lobe there was denial atrophy with microvascular ischemia also reported. She was started on Aggrenox by the hospitalist service neurology was consulted but not available over the weekend. She will be seen by Dr. Álvarez today. She also underwent left thoracentesis due to finding of pleural effusion. She is on hemodialysis and was last dialyzed yesterday Yesterday patient appeared to be confused and even not able to recognize the daughter or follow commands but kept nodding head positively although she was trying to speak something but I was not able to understand well According to family she was able to eat some after the dialysis yesterday. This morning when some tract with her up noticed left facial droop facial droop stroke alert was called. Patient went to CT scan. I saw also left facial droop when I came to see her She still appears sleepy but able to arouse her and she open her eyes she is not able to recognize or follow the commands easily. She did squeeze my finger using her left hand once when I asked her this morning. Exam - Constitutional Vitals: Period Temp Pulse Resp BP Sys/Romo Pulse Ox Last 24 Hr 98.2 F-99.3 F 88-99 16-20 107-147/44-59 90-100 General appearance: no acute distress - Respiratory Respiratory exam: Present: clear to auscultation bilaterally. Absent: rales, rhonchi - Cardiovascular Cardiovascular exam: Present: regular rate and rhythm. Absent: tachycardia - GI/Abdominal GI/Abdominal exam: Present: normal bowel sounds, tenderness (There appear to be some tenderness on palpation left lower abdomen but no rigidity or rebound), soft. Absent: distended - Extremities Exam Extremities exam: Absent: edema - Neurological Exam Neurological exam: Present: other (Sleepy but arousable confused not oriented unable to follow command to do good neurological evaluation.) Results - Labs CBC & BMP: 03/20/17 08:09 03/20/17 08:09 Lab Results: I have reviewed the past 24 hour labs
--- NOTE | 2017-03-20 09:22 | ECHO Report ---
Sasha Sidhu 03/19/2017 Exam Date: 15:03 Referring Physician: Ai Moreno Technologist: UCHE Age: 87 Ht (in): 60 Wt (lb): 93 FExam Location: [facility] Gender: Echo [id number]: AMS, Pleural effusion, not elsewhereIndications:lassified, Essential (primary) hypertension, Shortness of breath, End stage renal disease BP: 147 / 59 HR: 91 SinusRhythm: FairTechnical Quality: IMPRESSIONS Normal LV systolic function, ejection fraction 60%. Grade 2/4 diastolic dysfunction. Mild biatrial enlargement. Trace mitral regurgitation. Mild aortic stenosis with mild to moderate aortic regurgitation. Mild to moderate tricuspid regurgitation. Severe pulmonary hypertension with pulmonary artery pressure estimated at 96 mmHg. Pleural effusion is present with some fibrinous areas. MEASUREMENTS (Male / Female) Normal Values 2D ECHO LV Diastolic Diameter PLAX 3.5 cm 4.2 - 5.9 / 3.9 - 5.3 cm LV Systolic Diameter PLAX 2.0 cm LV Fractional Shortening PLAX 41.8 % IVS Diastolic Thickness 1.0 cm 0.6 - 1.0 / 0.6 - 0.9 cm LVPW Diastolic Thickness 1.0 cm 0.6 - 1.0 / 0.6 - 0.9 cm RV Internal Dim ED PLAX 2.8 cm Aortic Root Diameter 2.2 cm LA Systolic Diameter LX 4.3 cm 3.0 - 4.0 / 2.7 - 3.8 cm DOPPLER TR Peak Velocity 463.0 cm/s TR Peak Gradient 85.7 mmHg FINDINGS Left Ventricle Normal left ventricular cavity size. Mild left ventricular hypertrophy. Left ventricular ejection fraction is estimated at 60 %. Right Ventricle The right ventricle is normal in size and function. Right Atrium The right atrium is mildly enlarged. Left Atrium The left atrium is mildly enlarged. Mitral Valve Thickened mitral valve. Mild mitral annular calcification. Trace mitral valve regurgitation. Aortic Valve Mild aortic valve stenosis, mean gradient 13 mmHg, NEHAL 1.7 cm. Mild- to-moderate aortic valve regurgitation. Tricuspid Valve Morphologically normal tricuspid valve. [id number] tricuspid valve regurgitation. Tricuspid regurgitation velocities suggest a PAP of 96 mmHg. Pulmonic Valve Morphologically normal pulmonic valve without significant stenosis. There is no pulmonic regurgitation. Pericardium Pleural effusion. No pericardial effusion. Aorta Normal ascending aorta dimension. Celina Miles MD (Electronically Signed) 20 Mar 2017 09:20Final Date:
--- NOTE | 2017-03-20 09:23 | XRay Report ---
Referring Physician: Ramses Gallardo Exam: XR chest 1V portable Date: March 20, 2017 at 8:37 AM Reason: Elevated white blood cell count Comparison: Chest post procedure March 16, 2017 Findings: The heart is partially obscured but likely stable in size. There are are prominent opacities within both lungs, mainly at the lower lung zones. This is concerning for pulmonary edema and atelectasis, but superimposed pneumonia is not excluded. Evaluation for a pneumothorax at the lung apices is somewhat difficult due to artifact, but no definite pneumothorax is identified. There is at least moderate bilateral pleural fluid. The osseous structures appear stable. Vascular stents are noted at the left arm. Impression: There are again opacities within both lungs and bilateral pleural fluid. The opacities and pleural fluid appear to have increased at the left mid and lower lung zones and possibly on the right. PROCEDURE INTERPRETED AT [facility] DEPARTMENT OF RADIOLOGY Final Report Signed by: Dr. Cindy Johnson
--- NOTE | 2017-03-20 12:43 | Magnetic Resonance Report ---
MR head/brain wo con Indication: Mental status change Comparison: MRI brain dated March 17, 2017 Technique: Multiplanar magnetic resonance imaging was performed of the brain without the use of intravenous contrast. Findings: Study significantly limited secondary to motion artifact. There is no significant midline shift. Distribution of restricted diffusion consistent with acute infarct involving the mesial left temporal lobe, left occipital lobe, and left thalamus appears similar to comparison study. IMPRESSION: As above. PROCEDURE INTERPRETED AT [facility] DEPARTMENT OF RADIOLOGY Final Report Signed by: Dr Saúl Lew
[2017-03-20] MEDS ORDERED: VANCOMYCIN INJ 1,000 MG in SODIUM CHLORIDE 0.9% 250 ML IV ONE (14:09)
--- NOTE | 2017-03-20 14:26 | Neurology Consult Note ---
History of Present Illness History of present illness: Ms. Sidhu is a 87 year old female with history of end-stage renal disease on HD , hypertension and hypothyroidism presenting to the ED with a one-week history of progressive confusion and weakness. Majority of the history came from patient's son who states that she has become increasingly more confused over the last week where she is walking into the wrong room and talking out of her head. Last time she was talking and walking was on Sunday. He states on when she got up she could not even walk and he had to carry her around. Patient denies headache, dysphasia, abdominal pain, constipation, or lower extremity edema. She does state she feels some tightness in her chest when she deep breathes and some shortness of breath. She does not admit to being confused. She is afebrile and her blood pressure is up a little bit to 161/59. Chest x-ray shows some increasing effusions present bilaterally with underlying cardiac decompensation. CT of the chest was ordered and reveals bilateral pleural effusions, atelectasis of the left lower lobe and lingula, appearance of the lung parenchyma has differential of infection versus pulmonary edema, adenopathy within the mediastinum, neoplastic etiology not excluded. MRI of the brain reveals acute to subacute left MCA distribution infarct. Patient's mental status waxing and waning ever since. This morning it was thought that she might have dropped to some increasing facial droop and a stroke alert was called. Repeat MRI of the brain reveals no change in the size of the stroke. No bleeding seen either. Patient is sort of unresponsive. Her white blood cell counts are high and suspected infection somewhere. Family has made her DNR. Home Medications Medication Instructions Recorded Confirmed Type Calcium Acetate 2 capsule PO TID W/MEALS 10/07/16 03/15/17 History Acetaminophen Tab [Tylenol Tab] 650 mg PO Q6H PRN #0 tablet 10/12/16 03/15/17 Rx Levothyroxine Tab [Synthroid Tab] 25 mcg PO DAILY@0700 #30 tablet 10/12/1603/15 Rx Tramadol HCl [Tramadol Tab] 50 mg PO Q6H PRN #30 tablet 10/12/16 03/15/17 Rx Metoprolol Tartrate Tab [Lopressor 25 mg PO QAM 03/15/17 03/15/17 History Tab] Allergies Allergy/AdvReac Type Severity Reaction Status Date / Time propoxyphene Allergy ITCHING Verified 10/06/16 19:52 [From Darvocet-N 100] 12 point system: reviewed and no additional remarkable complaints except as stated Medical,Surgical,& Family Hx - Medical History Cardio: History of: CAD, Hypertension Neurology: No history of: Seizures HEENT: History of: Glaucoma Rheumatology: History of;: Rheumatoid Arthritis Renal: History of: Dialysis (MWF), Renal Failure Hematology: History of: Anemia - Surgical History Cardiac Surgeries: Sugical HX of: Vascular Access Devices (dialysis catheter and fistula) Thoracic Surgeries: Patient denies;: Organ Transplant, Lobectomy Neurologic Surgeries: Patient denies: Neurologic Surgery HEENT Surgeries: Patient denies: Eye Surgery, Thyroid Surgery, Tonsilectomy & Adenoidectomy Abdominal Surgeries: Surgical HX of: Cholecystectomy Patient denies: Abdominal Surgery Reproductive Surgeries: Patient denies;: Genitourinary Surgery, Gynecologic Surgery - Family History Family History: Reports;: Family Cancer (father, melanoma), Family Hypertension - Social History Smoking Status: Former smoker Frequency of Alcohol Use: None Type of Drug Use: None Exam - Constitutional Vitals: Period Temp Pulse Resp BP Sys/Romo Pulse Ox Last 24 Hr 98.2 F-100.3 F 87-99 16-20 102-110/39-52 90-100 Exam: GENERAL: Patient is in no acute distress. NECK: Neck is supple. There is no JVD. No carotid bruits present. No thyroid masses. CVS: First and second heart sounds are normal. There is no S3 present. Regular rate and rhythm. RESPIRATORY: Decreased breath sounds in the right ABDOMEN: Soft and non-tender. Bowel sounds are present. There is no hepatosplenomegaly. EXT: There is no palpable edema. Peripheral pulses are present. Skin: No rashes Central Nervous system: General: Unresponsive Speech: None Comprehension: None Facial expressions: Normal Cranial Nerves: Pupils are equally reactive to light. Doll's head eye movements are positive. Right central facial weakness seen Motor: Bulk and Tone is normal. Strength cannot be assessed Sensory: Cannot be assessed Reflexes: 1+ and symmetrical Cerebellar function: Normal finger to nose and heel to fulton testing. Toes: Equivocal Gait: Cannot be assessed Results - Labs CBC & BMP: 03/20/17 08:09 03/20/17 08:09 Assessment and Plan (1) Acute CVA (cerebrovascular accident) Status: Acute Assessment and plan: Continue Lovenox at the same dose Discussed with the family in detail and answered all questions to their satisfaction. We will do in and out cath and send UA She is already been started on broad-spectrum antibiotic EEG Insert feeding tube and start feeding and medications. Prognosis is guarded. Thank you for the consult Current Visit: Yes
[2017-03-20] MEDS: ENOXAPARIN 30 MG/0.3 ML SYRINGE SUBCUT SCH (17:04)
--- NOTE | 2017-03-20 17:15 | CT Report ---
CT abdomen pelvis wo con Indication: Elevated white blood cell count with abdominal pain. Comparison: Chest CT 03/15/2017 Technique: CT of the abdomen and pelvis was performed without administration of intravenous contrast. The CT examination was performed using one or more of the following dose reduction techniques: Automatic exposure control, adjustment of the mA and kV according to patient size, use of acute or iterative reconstruction techniques. Findings: Bilateral large loculated pleural effusions are demonstrated bilaterally. The lack of intravenous contrast precludes complete evaluation of the pleural surfaces. There is no distinct pleural thickening. Compressive atelectasis of the right lower lobe and dependent right middle lobe is moderate. The left lower lobe is nearly totally atelectatic with atelectasis of the lingula additionally demonstrated. The lung parenchyma is blurred secondary to motion. Surgical absence of the gallbladder is demonstrated. Lobulated hypoattenuating lesion of the liver is present measuring up to 4.5 cm. Additional hypoattenuating lesion within the inferior margin of the lateral segment left hepatic lobe measures approximately 19 mm. Further evaluation is limited secondary to lack of intravenous contrast. Spleen measures 4.7 x 10.0 x 11.8 cm. The adrenal glands are not well visualized. Pancreas is not well visualized secondary to motion as well as lack of intravenous contrast. Multiple calcifications are noted in the region of the pancreatic tail and may lie within the pancreatic tail suggesting prior pancreatitis. The kidneys bilaterally are small in size and demonstrate renal cortical atrophy. Moderately dense diastrophic calcification of the aorta and iliac arteries is demonstrated. Moderate amount of ascites is noted within the dependent portion of the pelvis. Numerous diverticula are present within the sigmoid colon and descending colon, extending into the splenic flexure. In the region of the descending colon, there is hazy attenuation of the periserosal fat and acute inflammatory changes cannot be excluded. Additionally, the descending colon demonstrates possible wall thickening. This segment is difficult to evaluate secondary to lack of intravenous contrast as well as lack of distention. A few scattered diverticula are suggested in the transverse large bowel. Additional scattered diverticula are present within the cecum. Stomach and small bowel not well visualized. Air-fluid level is noted within the urinary bladder. High attenuation liquid within the urinary bladder could reflect sequelae of residual contrast from chest CT. Bladder wall appears somewhat thickened. Bony structures appear demineralized. Multilevel facet arthropathy of the lumbar spine is present. No acute osseous pathology is demonstrated. Impression: 1. Bilateral moderately large loculated pleural effusions are present. Complete evaluation of the pleural surfaces is not possible secondary to lack of intravenous contrast. Some increase in size of the right-sided pleural effusion is suggested when compared to the previous CT of the chest performed 03/15/2017. The left-sided pleural effusion is probably changed little in size. 2. Atelectatic changes are present bilaterally as detailed. 3. Well circumscribed lobulated hypoechoic lesion of the liver possibly reflects cyst, little change has occurred since comparison chest CT performed 03/15/2017. 4. Colonic diverticulosis is present. Acute diverticulitis involving descending colon cannot be excluded. 5. Small moderate amount of intrapelvic ascites is demonstrated. 6. The kidneys are bilaterally small and demonstrate suggested renal cortical atrophy. 7. Thickening of the bladder wall is nonspecific given the degree of distention. Urinalysis is recommended to exclude cystitis. 03/20/2017 5:04 PM PROCEDURE INTERPRETED AT [facility] DEPARTMENT OF RADIOLOGY Final Report Signed by: Dr. Leandro Chatman
[2017-03-20 18:03] LABS: Apearance,Urine Slightly Hazy (Clear); Bilirubin,Urine Negative (Negative); Blood, Urine Moderate mg/dL (Negative); Glucose,Urine (UA) 150 mg/dL (Negative); Hyaline Casts,Urine 1 /LPF (0-3); Ketones,Urine Negative (Negative); Nitrite,Urine Negative (Negative); Protein,Urine 100 MG/DL; RBC,Urine <1 /HPF (0-4); Urine Color Yellow (Yellow); Urine Specific Gravity 1.009 (1.001-1.035); Urine Urobilinogen < 2.0 EU/DL (0.2-1.0); WBC,Urine <1 /HPF (0-6)
[2017-03-20] MEDS: PIPERACILLIN/TAZOBACTAM 3,375 MG in SODIUM CHLORIDE 0.9% 100 ML IV SCH (18:29)
[2017-03-20] MEDS: DEXTROSE 5% NACL 0.9% 250 ML IV SCH (19:37)
--- NOTE | 2017-03-20 20:32 | Pulmonology Consult Note ---
Assessment and Plan (1) COPD (chronic obstructive pulmonary disease) Status: Chronic Assessment and plan: Patient reportedly has some COPD but seems to be breathing comfortably at present Current Visit: No Qualifiers: COPD type: COPD with acute exacerbation Qualified Code(s): J44.1 - Chronic obstructive pulmonary disease with (acute) exacerbation (2) congestive heart failure Status: Acute Assessment and plan: Patient has bilateral effusions and this fluid was transudative and likely from heart failure. She may need another thoracentesis if she has more distress but at present she seems to be relatively comfortable with her breathing. Current Visit: No (3) Cardiomyopathy Problem details: grade II diastolic dysfunction per ECHO Status: Chronic Assessment and plan: Her echo shows some valvular heart disease and diastolic dysfunction along with pulmonary hypertension. Current Visit: No (4) End-stage renal disease on hemodialysis Status: Acute Assessment and plan: Patient has end-stage renal disease and requires dialysis. Current Visit: Yes (5) Altered mental status Status: Acute Assessment and plan: Patient has now become less responsive and has had a CVA. She is getting a neurological workup but her outlook is poor. Current Visit: Yes (6) Acute CVA (cerebrovascular accident) Status: Acute Assessment and plan: The patient has had a recent CVA. Current Visit: Yes History of Present Illness Chief complaint: Pleural effusion History of present illness: Ms. Sidhu is a 87 year old white female that has a history of having end-stage renal disease and is on hemodialysis. She has a history of having hypertension and coronary artery disease along with rheumatoid arthritis. She apparently was brought in several days ago with confusion. She apparently was able to ambulate but was quite confused. She became more short of breath apparently and came in with a left effusion. She had a thoracentesis done in 1200 cc removed. The fluid was a transudate. She has been getting dialysis. This morning she had facial droop has become less responsive and was felt to have a CVA. Now she is lying in bed and is basically unresponsive. The family does not want her life support. She is getting a neurological workup. Her chest x- ray now shows bilateral effusions. Her O2 saturations have been adequate and she is not having any respiratory distress at present. She apparently is a former smoker and has a component of COPD. Home Medications Medication Instructions Recorded Confirmed Type Calcium Acetate 2 capsule PO TID W/MEALS 10/07/16 03/15/17 History Acetaminophen Tab [Tylenol Tab] 650 mg PO Q6H PRN #0 tablet 10/12/16 03/15/17 Rx Levothyroxine Tab [Synthroid Tab] 25 mcg PO DAILY@0700 #30 tablet 10/12/1603/15 Rx Tramadol HCl [Tramadol Tab] 50 mg PO Q6H PRN #30 tablet 10/12/16 03/15/17 Rx Metoprolol Tartrate Tab [Lopressor 25 mg PO QAM 03/15/17 03/15/17 History Tab] Allergies Allergy/AdvReac Type Severity Reaction Status Date / Time propoxyphene Allergy ITCHING Verified 10/06/16 19:52 [From Darvocet-N 100] ROS unobtainable: due to mental status (Patient is basically obtunded at present.) Exam (Pulmonay) H&P - Constitutional Vitals: Period Temp Pulse Resp BP Sys/Romo Pulse Ox Last 24 Hr 99.3 F-100.3 F 84-99 16-24 99-107/39-52 90-100 General appearance: cachectic, other (The patient is unresponsive but is in no respiratory distress.) - Head Head exam: Present: normal inspection - Eye Eye exam: Absent: scleral icterus Pupils: Present: ELE - ENT ENT exam: Present: normal exam - Neck Neck exam: Absent: lymphadenopathy, meningismus, thyromegaly - Respiratory Respiratory exam: Present: decreased breath sounds (She has decreased breath sounds in the bases.), rhonchi. Absent: accessory muscle use - Cardiovascular Cardiovascular exam: Present: regular rate and rhythm, systolic murmur (She has a soft systolic murmur). Absent: gallop - GI/Abdominal GI/Abdominal exam: Present: soft. Absent: distended, organomegaly, tenderness - Extremities Exam Extremities exam: Absent: calf tenderness, edema - Neurological Exam Neurological exam: Present: altered (She is quite lethargic at present) - Psychiatric Psychiatric exam: Absent: anxious - Skin Skin exam: Present: warm, dry Medical,Surgical,& Family Hx - Medical History Cardio: History of: CAD, Hypertension Neurology: No history of: Seizures HEENT: History of: Glaucoma Rheumatology: History of;: Rheumatoid Arthritis Renal: History of: Dialysis (MWF), Renal Failure Hematology: History of: Anemia - Surgical History Cardiac Surgeries: Sugical HX of: Vascular Access Devices (dialysis catheter and fistula) Thoracic Surgeries: Patient denies;: Organ Transplant, Lobectomy Neurologic Surgeries: Patient denies: Neurologic Surgery HEENT Surgeries: Patient denies: Eye Surgery, Thyroid Surgery, Tonsilectomy & Adenoidectomy Abdominal Surgeries: Surgical HX of: Cholecystectomy Patient denies: Abdominal Surgery Reproductive Surgeries: Patient denies;: Genitourinary Surgery, Gynecologic Surgery - Family History Family History: Reports;: Family Cancer (father, melanoma), Family Hypertension - Social History Smoking Status: Former smoker Frequency of Alcohol Use: None Type of Drug Use: None Results - Labs CBC & BMP: 03/20/17 08:09 03/20/17 08:09 - Diagnostic Findings Procedure: Chest x-ray: image reviewed by me, report reviewed by me (Chest x- ray does show bilateral effusions)
--- NOTE | 2017-03-20 23:11 | Nephrology Progress Note ---
Nephrology - PN: Subj Interval history: She is less responsive today. She has a low-grade fever. Exam (PN)-Nephrology - Vital Signs Vital signs: Period Temp Pulse Resp BP Sys/Romo Pulse Ox Last 24 Hr 98.9 F-100.3 F 73-99 16-24 74-107/32-52 90-100 Exam: Gen.: Less alert today ENT: Pupils equal round reactive to light. Neck: Supple. No JVD or bruit. Cardiovascular: Regular rate and rhythm. No murmur rub or gallop Lungs: Clear Abdomen: Soft. Nontender. Positive bowel sounds. No organomegaly Extremities: No edema - Lab 03/20/17 08:09 03/20/17 08:09 Most recent lab results Calcium 8.8 MG/DL (8.5-10.1) 03/20/17 08:09 Magnesium 2.2 MG/DL (1.8-2.4) 03/18/17 03:24 Assessment and Plan (1) End-stage renal disease on hemodialysis Status: Acute Assessment and plan: 87-year-old woman admitted with: * ESRD. Dialysis MWF * CVA. Neurology has seen. Repeat MRI shows no change in CVA size however she is less responsive today * Pleural effusion. Status post thoracentesis. Cultures negative * Pulmonary hypertension * Cardiomyopathy * Anemia * Low-grade fever. Empiric antibiotics have been started. Discussed with family Current Visit: Yes (2) Pleural effusion Status: Acute Current Visit: Yes (3) Cerebrovascular disease Status: Acute Current Visit: Yes (4) Generalized weakness Status: Acute Current Visit: Yes (5) Anemia Status: Chronic Current Visit: No Qualifiers: Other causes of anemia: chronic disease, kidney (6) COPD (chronic obstructive pulmonary disease) Status: Chronic Current Visit: No Qualifiers: COPD type: COPD with acute exacerbation Qualified Code(s): J44.1 - Chronic obstructive pulmonary disease with (acute) exacerbation (7) Pulmonary hypertension Status: Chronic Current Visit: No
[2017-03-21] MEDS: PIPERACILLIN/TAZOBACTAM 3,375 MG in SODIUM CHLORIDE 0.9% 100 ML IV SCH ×2 (03:49→14:37)
[2017-03-21] MEDS: DEXTROSE 5% NACL 0.9% 250 ML IV SCH ×7 (03:50→19:04)
[2017-03-21 06:06] LABS: Basophils % 0.4 % (0.0-0.8); Eosinophils # 0.1 10*3/uL (0.0-0.87); Hematocrit 30.8 VOL% (35.7-47.0); Hemoglobin 9.8 GM/DL (12.0-16.0); Immature Granulocytes % 0.9 %; Immature Granulocytes Absolute 0.09 #; Lymphocytes # 1.2 10*3/uL (1.4-4.0); Lymphocytes % 11.5 % (21.3-54.2); Mean Corpuscular HGB Conc 31.8 GM/DL (32-36); Mean Corpuscular Hemoglobin 29 PG (27-34); Mean Corpuscular Volume 91.7 FL (87-102); Mean Platelet Volume 13.1 FL (9.6-12.0); Monocytes # 2.3 10*3/uL (0.11-0.8); Monocytes % 22.3 % (1.7-12.7); Neutrophils # 6.7 10*3/uL (1.4-7.4); Neutrophils % 63.9 % (38.7-73.9); Platelet Count 140 T/CUMM (130-400); Red Blood Count 3.36 MC/CUMM (3.8-5.5); Red Cell Distribution Width 18.2 % (9.3-17.3); White Blood Count 10.5 T/CUMM (4-12)
[2017-03-21] MEDS: LEVOTHYROXINE 25 MCG TABLET PO SCH (06:30)
[2017-03-21 06:31] LABS: Band Neutrophils 1 % (0-10); Hypochromasia 1+; Lymphocytes 9 % (20-55); Microcytosis Slight; Ovalocytes Slight; Platelet Estimate Normal; Segmented Neutrophils 75 % (50-85); Total Cells Counted 100
[2017-03-21 06:38] LABS: Calcium 8.7 MG/DL (8.5-10.1); Osmolality,Calculated 280.5 MOS/KG (273-304); Potassium 5.2 MMOL/L (3.5-5.1)
[2017-03-21] MEDS ORDERED: ALBUMIN 25% 25 GM in PREMIX 1 EACH IV PRN (08:22)
[2017-03-21] MEDS ORDERED: HEPARIN 10,000 UNIT/10 ML VIAL IV PRN (08:24)
--- NOTE | 2017-03-21 10:42 | Quality Management ---
The patient's LDL has not been evaluated. Please evaluate and order the appropriate medication or provide a contraindication PRIOR to discharge. To complete this task, you will need to order the medication OR provide a contraindication utilizing the Order Management screen. OR If you do not choose to evaluate this patient's LDL prior to discharge, this patient will require a statin at discharge or a contraindication. To complete this task, you will need to order the medication OR provide a contraindication utilizing the Order Management screen. DO NOT ORDER OR PROVIDE CONTRAINDICATIONS WITHIN THIS QUERY. THIS IS A MEANINGFUL USE REQUIREMENT! Thank you, Eli Rodríguez RN Clinical Spares Scheduler W [phone] [facility] HOSPITALTiffanie
[2017-03-21] MEDS: CALCIUM ACETATE 667 MG CAPSULE PO SCH ×3 (10:49→16:12)
--- NOTE | 2017-03-21 12:57 | Hospitalist Progress Note ---
Assessment and Plan (1) Altered mental status Status: Acute Assessment and plan: Secondary to CVA she had significant brain involvement with a stroke. Plan was to do NG tube feeding but since patient was reported alert and has been ordered to have a speech evaluation to evaluate for that Current Visit: Yes (2) Cerebrovascular disease Status: Acute Assessment and plan: See above Current Visit: Yes (3) Pleural effusion Status: Acute Assessment and plan: Transudate studies on previous thoracentesis. Likely end-stage renal disease/ CHF will follow symptoms Current Visit: Yes (4) Anemia Status: Chronic Assessment and plan: Hemoglobin hematocrit stable yesterday hemoglobin was probably a false elevated reading Current Visit: No Qualifiers: Other causes of anemia: chronic disease, kidney (5) ESRD (end stage renal disease) Status: Chronic Assessment and plan: On dialysis per renal Current Visit: No (6) Leukocytosis Status: Acute Assessment and plan: not sure what was the cause of leukocytosis so far studies been negative will get a swallowing studies to see if she has some aspiration but her lab work from yesterday did show that hemoglobin was also elevated. I am not sure if there is sample or lab error. Patient has been on broad-spectrum antibiotics he received a dose of vancomycin yesterday and is on Zosyn cultures so far negative we will check the vancomycin random level she was dialyzed today Current Visit: Yes Hospitalist: Subjective Interval history: Patient is awake but not able to communicate she try to save things which we cannot understand she is not able to answer question appropriately. I had even asked her if she could recognize her daughter she would not be able to tell her name. She has been afebrile was dialyzed today. Family did noted that she was more awake and alert while she was there but after dialysis she has been little tired and sleepy. Seen by the pulmonary Dr. Perez feels that pleural effusion likely from the heart failure. He currently recommend thoracentesis the patient is in moderate distress. Feeding was planned yesterday but NG tube was not placed. Dr. Miranda has a ordered a speech therapy as he saw patient was more alert Exam - Constitutional Vitals: Period Temp Pulse Resp BP Sys/Romo Pulse Ox Last 24 Hr 97.0 F-99.5 F 73-84 16-24 74-99/32-45 96-100 General appearance: no acute distress - Respiratory Respiratory exam: Present: clear to auscultation bilaterally but with decreased air entry at the bases spatially left side. Absent: rales, rhonchi - Cardiovascular Cardiovascular exam: Present: regular rate and rhythm. Absent: tachycardia - GI/Abdominal GI/Abdominal exam: Abdomen seem to be soft nontender no distention noted. No rebound bowel sounds present - Extremities Exam Extremities exam: Absent: edema - Neurological Exam Neurological exam: Present: other (Sleepy but arousable confused not oriented unable to follow command to do good neurological evaluation.) Results - Labs CBC & BMP: 03/21/17 05:06 03/21/17 05:07 Lab Results: I have reviewed the past 24 hour labs Specialty Discharge - Follow Up or Referrals
[2017-03-21] MEDS: PANTOPRAZOLE 40 MG TABLET PO SCH (14:00)
[2017-03-21] MEDS: DIPYRIDAMOLE/ASPIRIN 200-25 MG CAPSULE PO SCH ×2 (14:33→23:25)
--- NOTE | 2017-03-21 15:57 | Neurology Progress Note ---
Neurology - PN : Subjective Interval history: Family reported that she is doing better. She was more alert and awake this morning. She has been talkative to the family. Eating some as well. EEG showed generalized slowing. No seizure activity Exam (Progress Note) - Constitutional Vitals: Period Temp Pulse Resp BP Sys/Romo Pulse Ox Last 24 Hr 97.0 F-99.5 F 73-84 16-24 74-99/32-45 96-100 Exam: GENERAL: Patient is in no acute distress. NECK: Neck is supple. There is no JVD. No carotid bruits present. No thyroid masses. CVS: First and second heart sounds are normal. There is no S3 present. Regular rate and rhythm. RESPIRATORY: Decreased breath sounds in the right ABDOMEN: Soft and non-tender. Bowel sounds are present. There is no hepatosplenomegaly. EXT: There is no palpable edema. Peripheral pulses are present. Skin: No rashes Central Nervous system: General: Unresponsive at the present moment but was up this morning Speech: None Comprehension: Fair Facial expressions: Normal Cranial Nerves: Pupils are equally reactive to light. Doll's head eye movements are positive. Right central facial weakness seen Motor: Bulk and Tone is normal. Strength cannot be assessed Sensory: Cannot be assessed Reflexes: 1+ and symmetrical Cerebellar function: Normal finger to nose and heel to fulton testing. Toes: Equivocal Gait: Cannot be assessed Results - Labs CBC & BMP: 03/21/17 05:06 03/21/17 05:07 Assessment and Plan (1) Acute CVA (cerebrovascular accident) Status: Acute Assessment and plan: Continue Lovenox at the same dose Discussed with the family in detail and answered all questions to their satisfaction again. Continue watchful observation. Current Visit: Yes Specialty Discharge - Follow Up or Referrals
[2017-03-21] MEDS: ENOXAPARIN 30 MG/0.3 ML SYRINGE SUBCUT SCH (16:13)
--- NOTE | 2017-03-21 16:26 | Pulmonology Progress Note ---
Pulmonary - PN: Subj Interval history: Patient is an 87-year-old white lady that is very fragile and has end-stage renal disease on dialysis. She has a cardiomyopathy with some heart failure. Yesterday it looks like she may have extended a CVA. Today she is much better and apparently has been more alert earlier. She apparently was talking to her family and her facial weakness resolved. She did go to dialysis today and did okay. She is not having any increased problems with her breathing. She is sleeping at present. Exam (Progress Note) - Constitutional Vitals: Period Temp Pulse Resp BP Sys/Romo Pulse Ox Last 24 Hr 97.0 F-99.1 F 73-86 16-20 74-91/32-45 91-97 Exam: General appearance: cachectic, other (The patient has been more alert but is sleeping at present. She is in no distress.) - Head Head exam: Present: normal inspection - Eye Eye exam: Absent: scleral icterus Pupils: Present: ELE - ENT ENT exam: Present: normal exam, her facial weakness has improved. - Neck Neck exam: Absent: lymphadenopathy, meningismus, thyromegaly - Respiratory Respiratory exam: Present: decreased breath sounds (She has decreased breath sounds in the bases.), rhonchi. Absent: accessory muscle use - Cardiovascular Cardiovascular exam: Present: regular rate and rhythm, systolic murmur (She has a soft systolic murmur). Absent: gallop - GI/Abdominal GI/Abdominal exam: Present: soft. Absent: distended, organomegaly, tenderness - Extremities Exam Extremities exam: Absent: calf tenderness, edema - Neurological Exam Neurological exam: Present: altered (She is moving around better and was more alert earlier.) - Psychiatric Psychiatric exam: Absent: anxious - Skin Skin exam: Present: warm, dry Results - Labs CBC & BMP: 03/21/17 05:06 03/21/17 05:07 Assessment and Plan (1) COPD (chronic obstructive pulmonary disease) Status: Chronic Assessment and plan: Patient reportedly has some COPD but seems to be breathing comfortably at present. She is getting respiratory therapy. Current Visit: No Qualifiers: COPD type: COPD with acute exacerbation Qualified Code(s): J44.1 - Chronic obstructive pulmonary disease with (acute) exacerbation (2) congestive heart failure Status: Acute Assessment and plan: Patient has bilateral effusions and this fluid was transudative and likely from heart failure. She may need another thoracentesis if she has more distress but at present she seems to be relatively comfortable with her breathing. Current Visit: No (3) Cardiomyopathy Problem details: grade II diastolic dysfunction per ECHO Status: Chronic Assessment and plan: Her echo shows some valvular heart disease and diastolic dysfunction along with pulmonary hypertension. She does have a component of heart failure. Current Visit: No (4) End-stage renal disease on hemodialysis Status: Acute Assessment and plan: Patient apparently did fairly well at dialysis today. Current Visit: Yes (5) Altered mental status Status: Acute Assessment and plan: Patient has been more alert and talking today. Current Visit: Yes (6) Acute CVA (cerebrovascular accident) Status: Acute Assessment and plan: The patient has had a recent CVA. She does not appear quite as weak as she did. She does seem to be resting comfortably. Current Visit: Yes Specialty Discharge - Follow Up or Referrals
[2017-03-21] MEDS ORDERED: VANCOMYCIN INJ 1,000 MG in SODIUM CHLORIDE 0.9% 250 ML IV ONE (16:55)
--- NOTE | 2017-03-21 20:38 | Electroencephalogram ---
HISTORY: An elderly patient with a history of change in mental status. INTRODUCTION: A digital EEG was performed using the standard 10/20 system of electrode placement wi th one channel of EKG monitoring. Photic stimulation is performed. DESCRIPTION OF RECORD: The background is well disorganized, consists of 3 to 4 hertz low amplitude bilateral symmetrical rhythm. Photic stimulation does not elicit driving response. There are no fo olman, sharp-wave, spike or wave activity seen. Heart rate 70 beats per minute. IMPRESSION: ABNORMAL EEG DUE TO GENERALIZED SLOWING. CLINICAL CORRELATION: This record is supportive of severe encephalopathy, which could be secondary t o postictal state, posthypoxic state, metabolic disorder, diffuse TANK OFFICER insult, or increased intracran ial pressure. No epileptiform/seizure activity seen. Clinical correlation is suggested.
--- NOTE | 2017-03-21 21:15 | Nephrology Progress Note ---
Nephrology - PN: Subj Interval history: She tolerated dialysis this morning without complications. She is significantly more alert today. Her daughter was feeding her soft solids and she was able to swallow without signs of aspiration. Exam (PN)-Nephrology - Vital Signs Vital signs: Period Temp Pulse Resp BP Sys/Romo Pulse Ox Last 24 Hr 97.0 F-99.1 F 77-86 16-20 82-91/35-45 91-97 Exam: Gen.: Awake. Follows simple commands ENT: Pupils equal round reactive to light. Neck: Supple. No JVD or bruit. Cardiovascular: Regular rate and rhythm. No murmur rub or gallop Lungs: No rales Abdomen: Soft. Nontender. Positive bowel sounds. No organomegaly Extremities: No edema - Lab 03/21/17 05:06 03/21/17 05:07 Most recent lab results Calcium 8.7 MG/DL (8.5-10.1) 03/21/17 05:07 Magnesium 2.2 MG/DL (1.8-2.4) 03/18/17 03:24 Assessment and Plan (1) End-stage renal disease on hemodialysis Status: Acute Assessment and plan: 87-year-old woman admitted with: * ESRD. Dialysis MWF. Stable during dialysis today * CVA. Neurology has seen. Repeat MRI shows no change in CVA size. She is more alert today. She has been able to eat soft solids. Swallowing evaluation ordered. Physical therapy to evaluate * Pleural effusion. Status post thoracentesis. Cultures negative * Pulmonary hypertension * Cardiomyopathy * Anemia * Low-grade fever. Empiric antibiotics have been started. White cell count has decreased to 10,000. She is now afebrile Current Visit: Yes (2) Pleural effusion Status: Acute Current Visit: Yes (3) Cerebrovascular disease Status: Acute Current Visit: Yes (4) Generalized weakness Status: Acute Current Visit: Yes (5) Anemia Status: Chronic Current Visit: No Qualifiers: Other causes of anemia: chronic disease, kidney (6) COPD (chronic obstructive pulmonary disease) Status: Chronic Current Visit: No Qualifiers: COPD type: COPD with acute exacerbation Qualified Code(s): J44.1 - Chronic obstructive pulmonary disease with (acute) exacerbation (7) Pulmonary hypertension Status: Chronic Current Visit: No Specialty Discharge - Follow Up or Referrals
[2017-03-22] MEDS: DEXTROSE 5% NACL 0.9% 250 ML IV SCH ×3 (06:45→12:08)
[2017-03-22] MEDS: LEVOTHYROXINE 25 MCG TABLET PO SCH (06:46)
[2017-03-22] MEDS: PIPERACILLIN/TAZOBACTAM 3,375 MG in SODIUM CHLORIDE 0.9% 100 ML IV SCH ×3 (06:46→16:57)
[2017-03-22] MEDS: CALCIUM ACETATE 667 MG CAPSULE PO SCH ×3 (09:23→17:09)
[2017-03-22] MEDS: DIPYRIDAMOLE/ASPIRIN 200-25 MG CAPSULE PO SCH ×3 (09:23→23:04)
[2017-03-22] MEDS: PANTOPRAZOLE 40 MG TABLET PO SCH (09:29)
[2017-03-22] MEDS: ACETAMINOPHEN 325 MG TABLET PO PRN (12:16)
--- NOTE | 2017-03-22 13:18 | Pulmonology Progress Note ---
Pulmonary - PN: Subj Interval history: Patient is an 87-year-old white lady that is very fragile and has end-stage renal disease on dialysis. She has a cardiomyopathy with some heart failure. She looks like she had a CVA recently. However she has been doing better the last day or so. She does have bilateral effusions but her shortness of breath is not bad. She does arouse some but is still quite lethargic. She looks reasonably stable at present. She is certainly chronically ill. Exam (Progress Note) - Constitutional Vitals: Period Temp Pulse Resp BP Sys/Romo Pulse Ox Last 24 Hr 97.5 F-98.7 F 78-90 16-22 91-132/33-60 91-100 Exam: General appearance: cachectic, other (The patient has been more alert but still is quite lethargic at times. She is not having any respiratory distress.) - Head Head exam: Present: normal inspection - Eye Eye exam: Absent: scleral icterus Pupils: Present: ELE - ENT ENT exam: Present: normal exam, her facial weakness has improved. - Neck Neck exam: Absent: lymphadenopathy, meningismus, thyromegaly - Respiratory Respiratory exam: Present: decreased breath sounds (She has decreased breath sounds in the bases.), rhonchi. Absent: accessory muscle use - Cardiovascular Cardiovascular exam: Present: regular rate and rhythm, systolic murmur (She has a soft systolic murmur). Absent: gallop - GI/Abdominal GI/Abdominal exam: Present: soft. Absent: distended, organomegaly, tenderness - Extremities Exam Extremities exam: Absent: calf tenderness, edema - Neurological Exam Neurological exam: Present: She is arousable but does not do much activity - Psychiatric Psychiatric exam: Absent: anxious - Skin Skin exam: Present: warm, dry Results - Labs CBC & BMP: 03/21/17 05:06 03/21/17 05:07 Assessment and Plan (1) COPD (chronic obstructive pulmonary disease) Status: Chronic Assessment and plan: Patient reportedly has some COPD but seems to be breathing comfortably at present. She is getting respiratory therapy. She is lying flat in bed and is comfortable. Current Visit: No Qualifiers: COPD type: COPD with acute exacerbation Qualified Code(s): J44.1 - Chronic obstructive pulmonary disease with (acute) exacerbation (2) congestive heart failure Status: Acute Assessment and plan: Patient has bilateral effusions and this fluid was transudative and likely from heart failure. She may need another thoracentesis if she has more distress but at present she seems to be relatively comfortable with her breathing. Current Visit: No (3) Cardiomyopathy Problem details: grade II diastolic dysfunction per ECHO Status: Chronic Assessment and plan: Her echo shows some valvular heart disease and diastolic dysfunction along with pulmonary hypertension. She does have a component of heart failure. She will continue with dialysis. Current Visit: No (4) End-stage renal disease on hemodialysis Status: Acute Assessment and plan: Patient will continue with dialysis as long as she tolerates it. She certainly is very fragile. Current Visit: Yes (5) Altered mental status Status: Acute Assessment and plan: Patient has been more alert and has been responding. Current Visit: Yes (6) Acute CVA (cerebrovascular accident) Status: Acute Assessment and plan: The patient has had a recent CVA. She does not appear quite as weak as she did. She does seem to be resting comfortably. Current Visit: Yes Specialty Discharge - Follow Up or Referrals
--- NOTE | 2017-03-22 13:57 | Nephrology Progress Note ---
Nephrology - PN: Subj Interval history: She is alert but not as talkative as yesterday. Family states she has been eating today. She denies shortness of breath. Exam (PN)-Nephrology - Vital Signs Vital signs: Period Temp Pulse Resp BP Sys/Romo Pulse Ox Last 24 Hr 97.5 F-98.7 F 78-90 16-22 91-132/33-60 91-100 Exam: Gen.: Easily arousable but does not answer many questions ENT: Pupils equal round reactive to light. EOMs intact. Mucous membranes moist. Neck: Supple. No JVD or bruit. Cardiovascular: Regular rate and rhythm. No murmur rub or gallop Lungs: Clear Abdomen: Soft. Nontender. Positive bowel sounds. No organomegaly Extremities: No edema - Lab 03/21/17 05:06 03/21/17 05:07 Most recent lab results Calcium 8.7 MG/DL (8.5-10.1) 03/21/17 05:07 Magnesium 2.2 MG/DL (1.8-2.4) 03/18/17 03:24 Assessment and Plan (1) End-stage renal disease on hemodialysis Status: Acute Assessment and plan: 87-year-old woman admitted with: * ESRD. Dialysis MWF. * CVA. Neurology has seen. Swallowing evaluation revealed some difficulty with thin liquids. Physical therapy seeing. Hopefully she will qualify for rehab * Pleural effusion. Status post thoracentesis. Cultures negative * Pulmonary hypertension * Cardiomyopathy * Anemia * Low-grade fever. This has not recurred. Continue current antibiotics pending cultures Discussed in detail with family Current Visit: Yes (2) Pleural effusion Status: Acute Current Visit: Yes (3) Cerebrovascular disease Status: Acute Current Visit: Yes (4) Generalized weakness Status: Acute Current Visit: Yes (5) Anemia Status: Chronic Current Visit: No Qualifiers: Other causes of anemia: chronic disease, kidney (6) COPD (chronic obstructive pulmonary disease) Status: Chronic Current Visit: No Qualifiers: COPD type: COPD with acute exacerbation Qualified Code(s): J44.1 - Chronic obstructive pulmonary disease with (acute) exacerbation (7) Pulmonary hypertension Status: Chronic Current Visit: No Specialty Discharge - Follow Up or Referrals
--- NOTE | 2017-03-22 14:56 | Hospitalist Progress Note ---
Assessment and Plan (1) Altered mental status Status: Acute Assessment and plan: Secondary to CVA she had significant brain involvement with a stroke. Tolerating p.o. diet. Patient is on Aggrenox and prophylaxis with Lovenox. Current Visit: Yes (2) Cerebrovascular disease Status: Acute Assessment and plan: See above Current Visit: Yes (3) Pleural effusion Status: Acute Assessment and plan: Transudate studies on previous thoracentesis. Likely end-stage renal disease/ CHF will follow symptoms. Being followed by pulmonary Current Visit: Yes (4) Anemia Status: Chronic Assessment and plan: Hemoglobin hematocrit stable but lab work yesterday will check Current Visit: No Qualifiers: Other causes of anemia: chronic disease, kidney (5) ESRD (end stage renal disease) Status: Chronic Assessment and plan: On dialysis per renal Current Visit: No (6) Leukocytosis Status: Acute Assessment and plan: not sure what was the cause of leukocytosis so far studies been negative . White count was normal yesterday count of 18.4 on 03/20/2017. She was started on antibiotic empirically but no source of her found. Dose of vancomycin was given yesterday to 2 septated level. She will be dialyzed tomorrow I will check the labs before the dialysis. She is also on Zosyn Current Visit: Yes Hospitalist: Subjective Interval history: Patient is awake and afebrile. Extremities stated patient has good p.o. intake . They thought she seemed to be having some pain in the family states that she complained of abdominal pain and headache. She was given Tylenol earlier. She has no bowel movement for the last 2 days. Family states that she is able to recognize them. I try to talk to her but her speech isl slow and hard to understand though . Exam - Constitutional Vitals: Period Temp Pulse Resp BP Sys/Romo Pulse Ox Last 24 Hr 97.5 F-98.7 F 78-90 16-22 91-132/33-60 91-100 General appearance: no acute distress - Respiratory Respiratory exam: Present: clear to auscultation bilaterally but with decreased air entry at the bases spatially left side with some crackles. Absent: rales, rhonchi - Cardiovascular Cardiovascular exam: Present: regular rate and rhythm. Absent: tachycardia - GI/Abdominal GI/Abdominal exam: Abdomen seem to be soft nontender no distention noted. No rebound bowel sounds present - Extremities Exam Extremities exam: Absent: edema - Neurological Exam Neurological exam: Present: other (Sleepy but arousable confused not oriented unable to follow command to do good neurological evaluation.) Results - Labs CBC & BMP: 03/21/17 05:06 03/21/17 05:07 Lab Results: I have reviewed the past 24 hour labs Specialty Discharge - Follow Up or Referrals
[2017-03-22] MEDS: DOCUSATE SODIUM 100 MG CAPSULE PO SCH ×2 (16:57→22:16)
[2017-03-22] MEDS: POLYETHYLENE GLYCOL POWDER 17 GM PACK PO SCH (16:57)
[2017-03-22] MEDS: ENOXAPARIN 30 MG/0.3 ML SYRINGE SUBCUT SCH (17:11)
[2017-03-23] MEDS ORDERED: MORPHINE 2 MG/1 ML SYRINGE IV PRN (03:58)
--- NOTE | 2017-03-23 03:58 | EKG Report ---
Stationary ECG Study [facility] Test Date: 03/23/2017 3:57:17 AM Pat Name: CHRISTY CARBAJAL Department: Room: 338 Gender: F [employer] Supervisor: CHON : [id number] Requested by: Ramses Gallardo Order Number: [id number] Reading MD: LISA DUGAN Intervals [place] Rate: 120 P: 46 WI: 161 QRS: 48 QRSD: 90 T: 29 QT: 297 QTc: 368 Interpretive Statements SINUS TACHYCARDIA LOW QRS VOLTAGE IN EXTREMITY LEADS Electronically Signed On 03-25-17 15:36:22 CDT by LISA DUGAN [email or web address]
--- NOTE | 2017-03-23 04:01 | Event Note ---
Patient became extremely short of breath on the floor. Patient's O2 sats were in the 70s on 2 L. Her oxygen was titrated up. I was summoned to the patient. Patient was very tachycardic. Will order EKG and recommended patient be transferred down to the ICU for closer observation. I have ordered a chest x- ray and have ordered some low-dose morphine for air hunger. Patient seem to be agitated and distressed. Per the records she is a DO NOT RESUSCITATE.
--- NOTE | 2017-03-23 05:17 | Event Note ---
I went by the CCU to check on the patient. Her vital signs had settled down. Her heart rate had slowed and her O2 sats have come up. Case was discussed with her daughter. Hopefully she can go back upstairs later today
[2017-03-23] MEDS: PIPERACILLIN/TAZOBACTAM 3,375 MG in SODIUM CHLORIDE 0.9% 100 ML IV SCH ×2 (05:18→16:27)
--- NOTE | 2017-03-23 06:59 | XRay Report ---
Referring Physician: Aaron Hernandez Exam: XR chest 1V portable Date: March 23, 2017 at 3:58 AM Reason: Shortness of breath Comparison: Chest one view portable March 20, 2017 Findings: The heart is likely stable in size but is largely obscured by pulmonary opacities. There are prominent opacities within the lungs bilaterally, mainly within the lower lung zones. This is concerning for pulmonary edema and atelectasis, but there could be superimposed pneumonia. No pneumothorax is identified. There is a large amount of left pleural fluid and mild to moderate right pleural fluid. The pleural may be loculated. The osseous structures appear stable. There are surgical clips within the right abdomen and vascular stents at the left upper arm. Impression: There is slight decreased opacification and pleural fluid on the right. The study is otherwise similar to before. PROCEDURE INTERPRETED AT [facility] DEPARTMENT OF RADIOLOGY Final Report Signed by: Dr. Cindy Johnson
[2017-03-23 07:36] LABS: Basophils # 0.1 10*3/uL (0.0-0.2); Basophils % 0.7 % (0.0-0.8); Eosinophils # 0.3 10*3/uL (0.0-0.87); Eosinophils % 2.8 % (0.00-10.9); Hematocrit 33.7 VOL% (35.7-47.0); Hemoglobin 10.5 GM/DL (12.0-16.0); Immature Granulocytes % 4.9 %; Immature Granulocytes Absolute 0.49 #; Lymphocytes # 0.7 10*3/uL (1.4-4.0); Lymphocytes % 7.1 % (21.3-54.2); Mean Corpuscular HGB Conc 31.2 GM/DL (32-36); Mean Corpuscular Hemoglobin 29 PG (27-34); Mean Corpuscular Volume 94.1 FL (87-102); Mean Platelet Volume 12.2 FL (9.6-12.0); Monocytes # 2.3 10*3/uL (0.11-0.8); Monocytes % 22.9 % (1.7-12.7); NRBC # 0.02 10*3/uL; Neutrophils # 6.1 10*3/uL (1.4-7.4); Neutrophils % 61.6 % (38.7-73.9); Platelet Count 178 T/CUMM (130-400); Red Blood Count 3.58 MC/CUMM (3.8-5.5); Red Cell Distribution Width 18.7 % (9.3-17.3); White Blood Count 9.9 T/CUMM (4-12)
[2017-03-23 08:01] LABS: Eosinophils 4 % (0-10); Hypochromasia 1+; Lymphocytes 5 % (20-55); Microcytosis 1+; Myelocytes 1 %; Platelet Estimate Adequate; Segmented Neutrophils 76 % (50-85); Total Cells Counted 100
[2017-03-23 08:19] LABS: Albumin 2.3 G/DL (3.4-5.0); Bilirubin,Direct 0.5 MG/DL (0.0-0.20); Bilirubin,Indirect 0.4 MG/DL (0.0-1.0); Bilirubin,Total 0.9 MG/DL (0.2-1.0); Calcium 9.1 MG/DL (8.5-10.1); Osmolality,Calculated 294.7 MOS/KG (273-304); Potassium 4.4 MMOL/L (3.5-5.1); Risk Ratio 3.64; Total Protein 5.8 G/DL (6.4-8.3); VLDL CHOLESTEROL 14.2 MG/DL
--- NOTE | 2017-03-23 08:27 | Pulmonology Progress Note ---
Pulmonary - PN: Subj Interval history: Patient is an 87-year-old white lady that is very fragile and has end-stage renal disease on dialysis. She has a cardiomyopathy with some heart failure. She looks like she had a CVA recently. However she has been doing better the last day or so. She does have bilateral effusions but her shortness of breath is not bad. She does arouse some but is still quite lethargic. Last night she was moved to the ICU because of hypoxemia. She is doing better on facemask oxygen. She will have dialysis today. The left effusion is larger and probably needs removing. Exam (Progress Note) - Constitutional Vitals: Period Temp Pulse Resp BP Sys/Romo Pulse Ox Last 24 Hr 97.4 F-98.7 F 77-117 16-27 105-141/39-83 94-100 Exam: General appearance: cachectic, other (The patient has been more alert but still is quite lethargic at times. She does have mild tachypnea today.) - Head Head exam: Present: normal inspection - Eye Eye exam: Absent: scleral icterus Pupils: Present: ELE - ENT ENT exam: Present: normal exam, her facial weakness has improved. - Neck Neck exam: Absent: lymphadenopathy, meningismus, thyromegaly - Respiratory Respiratory exam: Present: She does have decreased breath sounds on the left lung. Otherwise she is moving air okay. - Cardiovascular Cardiovascular exam: Present: regular rate and rhythm, systolic murmur (She has a soft systolic murmur). Absent: gallop - GI/Abdominal GI/Abdominal exam: Present: soft. Absent: distended, organomegaly, tenderness - Extremities Exam Extremities exam: Absent: calf tenderness, edema - Neurological Exam Neurological exam: Present: She is arousable but does not do much activity. She continues to be very weak. - Psychiatric Psychiatric exam: Absent: anxious - Skin Skin exam: Present: warm, dry Results - Labs CBC & BMP: 03/23/17 07:12 03/23/17 07:12 - Diagnostic Findings Procedure: Chest x-ray: image reviewed by me, report reviewed by me (Chest x- ray does show increased left effusion) Assessment and Plan (1) COPD (chronic obstructive pulmonary disease) Status: Chronic Assessment and plan: Patient reportedly has some COPD but does not have much bronchospasm now. She is getting respiratory therapy. Current Visit: No Qualifiers: COPD type: COPD with acute exacerbation Qualified Code(s): J44.1 - Chronic obstructive pulmonary disease with (acute) exacerbation (2) congestive heart failure Status: Acute Assessment and plan: Patient has bilateral effusions and this fluid was transudative and likely from heart failure. She is more short of breath and has more of the left effusion again. She will probably need another thoracentesis or catheter placed. Current Visit: No (3) Cardiomyopathy Problem details: grade II diastolic dysfunction per ECHO Status: Chronic Assessment and plan: Her echo shows some valvular heart disease and diastolic dysfunction along with pulmonary hypertension. She does have a component of heart failure. She will continue with dialysis. Current Visit: No (4) End-stage renal disease on hemodialysis Status: Acute Assessment and plan: Patient will get dialysis today. She continues to be very fragile. Current Visit: Yes (5) Altered mental status Status: Acute Assessment and plan: Patient has been more alert and has been responding. She is more arousable now. Current Visit: Yes (6) Acute CVA (cerebrovascular accident) Status: Acute Assessment and plan: The patient has had a recent CVA. She does seem to be more alert and moving a little better. Current Visit: Yes Specialty Discharge - Follow Up or Referrals
[2017-03-23] MEDS: PANTOPRAZOLE 40 MG TABLET PO SCH (08:35)
[2017-03-23] MEDS: LEVOTHYROXINE 25 MCG TABLET PO SCH (08:35)
[2017-03-23] MEDS: CALCIUM ACETATE 667 MG CAPSULE PO SCH ×3 (08:35→17:18)
[2017-03-23] MEDS: DIPYRIDAMOLE/ASPIRIN 200-25 MG CAPSULE PO SCH ×2 (08:35→22:11)
[2017-03-23] MEDS: DOCUSATE SODIUM 100 MG CAPSULE PO SCH ×2 (08:36→22:13)
[2017-03-23] MEDS: POLYETHYLENE GLYCOL POWDER 17 GM PACK PO SCH (08:37)
[2017-03-23] MEDS ORDERED: ALBUMIN 25% 25 GM/100 ML VIAL IV ONE (09:52)
--- NOTE | 2017-03-23 13:55 | XRay Report ---
Exam: XR chest post procedure Date: 03/23/2017 at 1:16 PM Indication: Post thoracentesis Comparison: 03/23/2017 3:58 AM Technical: AP portable inspiration and expiration imaging Findings: No obvious pneumothorax. There is decreased left pleural effusion shunt vascularity is present with a small right pleural effusion persisting. Oxygen tubing external cardiac leads are present. Surgical changes present right upper abdomen and previous stent in the left upper arm. Impression: 1. Bilateral effusions and atelectatic change with improved aeration in the left chest post thoracentesis without pneumothorax 2. Persistent component of the underlying pulmonary edema CHF 3. Previous cholecystectomy suspected and previous stent in the left upper arm PROCEDURE INTERPRETED AT [facility] DEPARTMENT OF RADIOLOGY Final Report Signed by: Dr. Ran Evans
--- NOTE | 2017-03-23 13:57 | Ultrasound Report ---
Exam: US thoracentesis Date: 03/23/2017 8:27 AM Indication: Left pleural effusion Comparison: Chest radiograph earlier today and previous thoracentesis 03/16/2017 V TATYANA Evans D.O. Findings: The risk and benefits were explained informed consent was obtained. The back was prepped with ChloraPrep and 1% local lidocaine was administered. Small stab wound was made and a 6 Pashto thoracentesis catheter was placed with real-time ultrasound guidance with 1000 cc of serous type fluid aspirated. The catheter was removed and Xeroform gauze and Tegaderm dressing was applied. Estimated blood loss none Complications none Condition stable Specimen discarded Impression: 1. Satisfactory thoracentesis with ultrasound guidance. PROCEDURE INTERPRETED AT [facility] DEPARTMENT OF RADIOLOGY Final Report Signed by: Dr. Ran Evans
--- NOTE | 2017-03-23 13:59 | Hospitalist Progress Note ---
Hospitalist: Subjective Interval history: Patient developed increasing shortness of breath with tachypnea and tachycardia overnight and was transferred to the ICU for closer monitoring. EKG was done and showed sinus tachycardia without any acute ST or T-wave changes noted. Chest x-ray showed increasing right pleural effusion and underwent a thoracentesis today. Patient still lethargic this a.m. no fever. Exam - Constitutional Vitals: Period Temp Pulse Resp BP Sys/Romo Pulse Ox Last 24 Hr 97.4 F-98.3 F 77-117 16-27 105-148/39-83 94-100 Exam: Frail, chronically ill-appearing, NAD RRR no M Diminished on the left, mild abdominal retractions Soft, NT, ND, +BS Warm no c/c/e Results - Labs CBC & BMP: 03/23/17 07:12 03/23/17 07:12 - Impressions (1) Acute encephalopathy Status: Acute Assessment and plan: Secondary to CVA and possibly hypoxia due to pleural effusion -Cont Aggrenox -Cont oxygen and do serial CXRs. Current Visit: Yes (2) Cerebrovascular disease Status: Acute Assessment and plan: See above Current Visit: Yes (3) Pleural effusion Status: Acute Assessment and plan: Transudate studies on previous thoracentesis. Likely end-stage renal disease/ CHF. S.P left thoracentesis 03/23. Pulmonary following, Current Visit: Yes (4) Anemia Status: Chronic Assessment and plan: Hemoglobin hematocrit stable. Serial labs. Transfuse as needed Current Visit: No Qualifiers: Other causes of anemia: chronic disease, kidney (5) ESRD (end stage renal disease) Status: Chronic Assessment and plan: On dialysis per renal Current Visit: No (6) Leukocytosis Status: Acute Assessment and plan: Etiology unclear. May be related to effusion. Cultures have been negative. Cont empiric Vanc and Zosyn for now. Serial labs DVT prophylaxis - Change Lovenox to heparin SQ BID. May transfer to floor later today if remains stable. Pt is DNR. Specialty Discharge - Follow Up or Referrals
--- NOTE | 2017-03-23 14:40 | Neurology Progress Note ---
Neurology - PN : Subjective Interval history: Patient seems to be doing much better. She is alert and awake and following some commands in the left side. Last night event noted. Patient is in the ICU currently Exam (Progress Note) - Constitutional Vitals: Period Temp Pulse Resp BP Sys/Romo Pulse Ox Last 24 Hr 97.4 F-98.3 F 77-117 16-27 105-148/39-83 94-100 Exam: GENERAL: Patient is in no acute distress. NECK: Neck is supple. There is no JVD. No carotid bruits present. No thyroid masses. CVS: First and second heart sounds are normal. There is no S3 present. Regular rate and rhythm. RESPIRATORY: Decreased breath sounds in the right ABDOMEN: Soft and non-tender. Bowel sounds are present. There is no hepatosplenomegaly. EXT: There is no palpable edema. Peripheral pulses are present. Skin: No rashes Central Nervous system: General: Alert and awake and following simple command Speech: None Comprehension: Fair Facial expressions: Normal Cranial Nerves: Pupils are equally reactive to light. Doll's head eye movements are positive. Right central facial weakness seen Motor: Bulk and Tone is normal. Strength cannot be assessed Sensory: Cannot be assessed Reflexes: 1+ and symmetrical Cerebellar function: Normal finger to nose and heel to fulton testing. Toes: Equivocal Gait: Cannot be assessed Results - Labs CBC & BMP: 03/23/17 07:12 03/23/17 07:12 Assessment and Plan (1) Acute CVA (cerebrovascular accident) Status: Acute Assessment and plan: Continue anticoagulation Continue watchful observation. No new recommendations from neuro standpoint Current Visit: Yes Specialty Discharge - Follow Up or Referrals
--- NOTE | 2017-03-23 15:55 | Nephrology Progress Note ---
Nephrology - PN: Subj Interval history: She was seen during dialysis. She developed shortness of breath and agitation last night and was moved to the ICU. O2 saturation dropped into the 70s. However it improved with O2 and she appears comfortable now. Exam (PN)-Nephrology - Vital Signs Vital signs: Period Temp Pulse Resp BP Sys/Romo Pulse Ox Last 24 Hr 97.4 F-98.3 F 77-117 16-27 105-148/39-83 94-100 Exam: Gen.: Alert. Follows some commands ENT: Pupils equal round reactive to light. EOMs intact. Mucous membranes moist. Neck: Supple. No JVD or bruit. Cardiovascular: Regular rate and rhythm. No murmur rub or gallop Lungs: Decreased breath sounds in the bases Abdomen: Soft. Nontender. Positive bowel sounds. No organomegaly Extremities: No edema - Lab 03/23/17 07:12 03/23/17 07:12 Most recent lab results Calcium 9.1 MG/DL (8.5-10.1) 03/23/17 07:12 Magnesium 2.2 MG/DL (1.8-2.4) 03/18/17 03:24 Assessment and Plan (1) End-stage renal disease on hemodialysis Status: Acute Assessment and plan: 87-year-old woman admitted with: * ESRD. Dialysis MWF. Blood pressure stable during dialysis. She will receive albumin IV during dialysis * CVA. Neurology following * Pleural effusion. Recurrence of effusion. Thoracentesis today * Pulmonary hypertension * Cardiomyopathy * Anemia Discussed in detail with family Current Visit: Yes (2) Pleural effusion Status: Acute Current Visit: Yes (3) Cerebrovascular disease Status: Acute Current Visit: Yes (4) Generalized weakness Status: Acute Current Visit: Yes (5) Anemia Status: Chronic Current Visit: No Qualifiers: Other causes of anemia: chronic disease, kidney (6) COPD (chronic obstructive pulmonary disease) Status: Chronic Current Visit: No Qualifiers: COPD type: COPD with acute exacerbation Qualified Code(s): J44.1 - Chronic obstructive pulmonary disease with (acute) exacerbation (7) Pulmonary hypertension Status: Chronic Current Visit: No Specialty Discharge - Follow Up or Referrals
[2017-03-23] MEDS: HEPARIN 5,000 UNIT/1 ML VIAL SUBCUT SCH (16:27)
[2017-03-24] MEDS: HEPARIN 5,000 UNIT/1 ML VIAL SUBCUT SCH ×2 (03:09→15:05)
[2017-03-24] MEDS: PIPERACILLIN/TAZOBACTAM 3,375 MG in SODIUM CHLORIDE 0.9% 100 ML IV SCH ×2 (03:29→15:06)
[2017-03-24] MEDS: LEVOTHYROXINE 25 MCG TABLET PO SCH (07:03)
--- NOTE | 2017-03-24 09:38 | Nephrology Progress Note ---
Nephrology - PN: Subj Interval history: Ms. Hackett is seen in follow-up of her end-stage renal disease. She dialyzed yesterday and also had a thoracentesis yesterday with removal of approximately 1 L of fluid from the pleural space on the left. She is not short of breath but she did complain of significant nausea and descriptive pain this morning and was given morphine. During my exam she is quite sedate. Her chest is clear and there is no edema. She is very thin and appears quite ill. Family members are at the bedside and understand her multiple problems. Next dialysis would be planned for Sunday. Exam (PN)-Nephrology - Vital Signs Vital signs: Period Temp Pulse Resp BP Sys/Romo Pulse Ox Last 24 Hr 97.0 F-98.3 F 85-94 17- 83-148/32-91 85-100 - Lab 03/23/17 07:12 03/23/17 07:12 Most recent lab results Calcium 9.1 MG/DL (8.5-10.1) 03/23/17 07:12 Magnesium 2.2 MG/DL (1.8-2.4) 03/18/17 03:24 Specialty Discharge - Follow Up or Referrals
[2017-03-24] MEDS: DIPYRIDAMOLE/ASPIRIN 200-25 MG CAPSULE PO SCH ×2 (10:00→20:15)
[2017-03-24] MEDS: PANTOPRAZOLE 40 MG TABLET PO SCH (10:00)
[2017-03-24] MEDS: DOCUSATE SODIUM 100 MG CAPSULE PO SCH ×2 (10:00→20:15)
[2017-03-24] MEDS: POLYETHYLENE GLYCOL POWDER 17 GM PACK PO SCH (10:05)
[2017-03-24] MEDS: CALCIUM ACETATE 667 MG CAPSULE PO SCH ×3 (10:05→16:58)
--- NOTE | 2017-03-24 15:25 | Hospitalist Progress Note ---
Assessment and Plan (1) ESRD (end stage renal disease) Status: Chronic Assessment and plan: Next HD planned for Sunday Current Visit: No (2) Anemia Status: Chronic Current Visit: No Qualifiers: Other causes of anemia: chronic disease, kidney (3) Shortness of breath Status: Resolved Current Visit: Yes (4) Pleural effusion Status: Acute Assessment and plan: s/p thoracentesis Current Visit: Yes (5) Cerebrovascular disease Status: Acute Current Visit: Yes Hospitalist: Subjective Interval history: Patient complaining of nausea this am, per family unable to say where. She was given morphine and is now asleep. Family denies any difficulty breathing . Exam - Constitutional Vitals: Period Temp Pulse Resp BP Sys/Romo Pulse Ox Last 24 Hr 97.0 F-99.2 F 82-94 17-24 83-145/32-91 85-100 General appearance: under weight - Head Head exam: Present: normocephalic, atraumatic - Eye Eye exam: Present: EOMI Pupils: Present: ELE - ENT ENT exam: Present: normal exam - Neck Neck exam: Present: normal inspection - Respiratory Respiratory exam: Present: clear to auscultation bilaterally. Absent: wheezes - Cardiovascular Cardiovascular exam: Present: regular rate and rhythm - GI/Abdominal GI/Abdominal exam: Present: normal bowel sounds, soft. Absent: tenderness, rebound - Extremities Exam Extremities exam: Present: normal inspection - Back Exam Back exam: Present: normal inspection - Neurological Exam Neurological exam: Present: other (lethargic) - Skin Skin exam: Present: warm, intact Results - Labs CBC & BMP: 03/23/17 07:12 03/23/17 07:12 Specialty Discharge - Follow Up or Referrals
[2017-03-24] MEDS ORDERED: oxyCODONE IR 5 MG TABLET PO PRN (15:28)
[2017-03-25] MEDS: PIPERACILLIN/TAZOBACTAM 3,375 MG in SODIUM CHLORIDE 0.9% 100 ML IV SCH ×2 (02:02→16:07)
[2017-03-25] MEDS: HEPARIN 5,000 UNIT/1 ML VIAL SUBCUT SCH ×2 (02:03→16:03)
[2017-03-25 05:55] LABS: Basophils # 0.1 10*3/uL (0.0-0.2); Basophils % 0.9 % (0.0-0.8); Eosinophils # 0.4 10*3/uL (0.0-0.87); Eosinophils % 4.7 % (0.00-10.9); Hematocrit 33.4 VOL% (35.7-47.0); Hemoglobin 10.5 GM/DL (12.0-16.0); Immature Granulocytes % 3.2 %; Immature Granulocytes Absolute 0.24 #; Lymphocytes # 1.3 10*3/uL (1.4-4.0); Lymphocytes % 16.4 % (21.3-54.2); Mean Corpuscular HGB Conc 31.4 GM/DL (32-36); Mean Corpuscular Hemoglobin 29 PG (27-34); Mean Corpuscular Volume 92.8 FL (87-102); Monocytes # 1.5 10*3/uL (0.11-0.8); Monocytes % 19.5 % (1.7-12.7); NRBC # 0.02 10*3/uL; Neutrophils # 4.2 10*3/uL (1.4-7.4); Neutrophils % 55.3 % (38.7-73.9); Platelet Count 152 T/CUMM (130-400); White Blood Count 7.6 T/CUMM (4-12)
[2017-03-25 06:11] LABS: Calcium 9.4 MG/DL (8.5-10.1); Magnesium 2.4 MG/DL (1.8-2.4); Osmolality,Calculated 287.1 MOS/KG (273-304); Potassium 4.6 MMOL/L (3.5-5.1)
[2017-03-25 06:21] LABS: Band Neutrophils 1 % (0-10); Eosinophils 2 % (0-10); Lymphocytes 16 % (20-55); Platelet Estimate Normal; Segmented Neutrophils 72 % (50-85); Total Cells Counted 100
[2017-03-25] MEDS: LEVOTHYROXINE 25 MCG TABLET PO SCH (06:27)
[2017-03-25] MEDS: POLYETHYLENE GLYCOL POWDER 17 GM PACK PO SCH (08:26)
[2017-03-25] MEDS: DIPYRIDAMOLE/ASPIRIN 200-25 MG CAPSULE PO SCH ×2 (08:26→20:42)
[2017-03-25] MEDS: DOCUSATE SODIUM 100 MG CAPSULE PO SCH ×2 (08:26→20:42)
[2017-03-25] MEDS: CALCIUM ACETATE 667 MG CAPSULE PO SCH ×3 (08:26→16:18)
[2017-03-25] MEDS: PANTOPRAZOLE 40 MG TABLET PO SCH (08:27)
--- NOTE | 2017-03-25 09:36 | Nephrology Progress Note ---
Nephrology - PN: Subj Interval history: Ms. Winters is seen in follow-up of her end-stage renal disease. She continues to be quite ill following a stroke and is quite sedated and inattentive. Her son says that she had wake up early this morning and felt briefly with him. She has not had any narcotic this morning. Blood pressure is still in the range of 85-95 systolic. Plan is for hemodialysis tomorrow but she is quite fragile and will continue to remove very little fluid since she is taking in very little Exam (PN)-Nephrology - Vital Signs Vital signs: Period Temp Pulse Resp BP Sys/Romo Pulse Ox Last 24 Hr 98.2 F-99.3 F 71-85 16-22 86-110/33-52 94-97 - Lab 03/25/17 05:20 03/25/17 05:20 Most recent lab results Calcium 9.4 MG/DL (8.5-10.1) 03/25/17 05:20 Magnesium 2.4 MG/DL (1.8-2.4) 03/25/17 05:20 Specialty Discharge - Follow Up or Referrals
--- NOTE | 2017-03-25 13:20 | Pulmonology Progress Note ---
Pulmonary - PN: Subj Interval history: Patient seen with family at bedside. She would nod her head to questions but I' m not sure if she really understood by questions. Does not appear in any respiratory distress Exam (Progress Note) - Constitutional Vitals: Period Temp Pulse Resp BP Sys/Romo Pulse Ox Last 24 Hr 98.2 F-99.3 F 71-85 16-22 86-104/40-52 94-97 General appearance: no acute distress, under weight - Head Head exam: Present: normal inspection - Respiratory Respiratory exam: Present: clear to auscultation bilaterally - Cardiovascular Cardiovascular exam: Present: regular rate and rhythm Results - Labs CBC & BMP: 03/25/17 05:20 03/25/17 05:20 Lab Results: I have reviewed the past 24 hour labs Assessment and Plan (1) COPD (chronic obstructive pulmonary disease) Status: Chronic Assessment and plan: Patient was being followed by Pulm in the ICU for vent management. clinically she is much improved. No new recs today. Dr baugh will return Sunday. please call if any questions before then Current Visit: No Qualifiers: COPD type: COPD with acute exacerbation Qualified Code(s): J44.1 - Chronic obstructive pulmonary disease with (acute) exacerbation (2) Pleural effusion Status: Acute Assessment and plan: Had thoracentesis done by IR, no labs sent. If this reaccumulates, can reconsult in the future Current Visit: Yes Specialty Discharge - Follow Up or Referrals
--- NOTE | 2017-03-25 14:28 | Hospitalist Progress Note ---
Assessment and Plan (1) ESRD (end stage renal disease) Status: Chronic Assessment and plan: Next HD planned for Sunday Current Visit: No (2) Anemia Status: Chronic Current Visit: No Qualifiers: Other causes of anemia: chronic disease, kidney (3) Shortness of breath Status: Resolved Current Visit: Yes (4) Pleural effusion Status: Acute Assessment and plan: s/p thoracentesis Current Visit: Yes (5) Cerebrovascular disease Status: Acute Current Visit: Yes Hospitalist: Subjective Interval history: No acute events overnight. Patient is more awake today, sitting up, being fed by family members. She told me that she was "doing alright." Exam - Constitutional Vitals: Period Temp Pulse Resp BP Sys/Romo Pulse Ox Last 24 Hr 98.2 F-99.3 F 71-85 16-22 86-104/38-52 94-97 General appearance: under weight - Head Head exam: Present: normocephalic, atraumatic - Eye Eye exam: Present: EOMI Pupils: Present: ELE - ENT ENT exam: Present: normal exam - Neck Neck exam: Present: normal inspection - Respiratory Respiratory exam: Present: clear to auscultation bilaterally. Absent: rhonchi, wheezes - Cardiovascular Cardiovascular exam: Present: regular rate and rhythm - GI/Abdominal GI/Abdominal exam: Present: normal bowel sounds, soft - Back Exam Back exam: Present: normal inspection - Neurological Exam Neurological exam: Present: alert - Psychiatric Psychiatric exam: Present: normal affect, normal mood - Skin Skin exam: Present: warm, intact Results - Labs CBC & BMP: 03/25/17 05:20 03/25/17 05:20 Specialty Discharge - Follow Up or Referrals
[2017-03-26] MEDS: PIPERACILLIN/TAZOBACTAM 3,375 MG in SODIUM CHLORIDE 0.9% 100 ML IV SCH ×2 (03:35→15:01)
[2017-03-26] MEDS: HEPARIN 5,000 UNIT/1 ML VIAL SUBCUT SCH ×2 (03:40→15:06)
[2017-03-26 04:59] LABS: Basophils # 0.1 10*3/uL (0.0-0.2); Basophils % 0.9 % (0.0-0.8); Eosinophils # 0.4 10*3/uL (0.0-0.87); Hematocrit 30.8 VOL% (35.7-47.0); Hemoglobin 9.8 GM/DL (12.0-16.0); Immature Granulocytes % 2.9 %; Immature Granulocytes Absolute 0.25 #; Lymphocytes # 1.4 10*3/uL (1.4-4.0); Lymphocytes % 15.9 % (21.3-54.2); Mean Corpuscular HGB Conc 31.8 GM/DL (32-36); Mean Corpuscular Hemoglobin 30 PG (27-34); Mean Corpuscular Volume 93.1 FL (87-102); Mean Platelet Volume 12.2 FL (9.6-12.0); Monocytes # 1.7 10*3/uL (0.11-0.8); Monocytes % 19.2 % (1.7-12.7); NRBC # 0.02 10*3/uL; Neutrophils # 4.9 10*3/uL (1.4-7.4); Neutrophils % 56.1 % (38.7-73.9); Platelet Count 155 T/CUMM (130-400); Red Blood Count 3.31 MC/CUMM (3.8-5.5); Red Cell Distribution Width 18.9 % (9.3-17.3); White Blood Count 8.6 T/CUMM (4-12)
[2017-03-26 05:15] LABS: Calcium 9.1 MG/DL (8.5-10.1); Magnesium 2.4 MG/DL (1.8-2.4); Osmolality,Calculated 293.1 MOS/KG (273-304); Potassium 4.2 MMOL/L (3.5-5.1)
[2017-03-26 05:25] LABS: Band Neutrophils 3 % (0-10); Eosinophils 1 % (0-10); Lymphocytes 11 % (20-55); Myelocytes 4 %; Segmented Neutrophils 77 % (50-85); Total Cells Counted 100
[2017-03-26 05:26] LABS: Anisocytosis 1+; Ovalocytes Few; Platelet Estimate Normal
[2017-03-26] MEDS: LEVOTHYROXINE 25 MCG TABLET PO SCH (06:25)
[2017-03-26] MEDS: DIPYRIDAMOLE/ASPIRIN 200-25 MG CAPSULE PO SCH ×2 (08:52→20:37)
[2017-03-26] MEDS: CALCIUM ACETATE 667 MG CAPSULE PO SCH ×3 (08:52→16:50)
[2017-03-26] MEDS: DOCUSATE SODIUM 100 MG CAPSULE PO SCH ×2 (08:53→20:38)
[2017-03-26] MEDS: PANTOPRAZOLE 40 MG TABLET PO SCH (08:53)
[2017-03-26] MEDS: POLYETHYLENE GLYCOL POWDER 17 GM PACK PO SCH (08:53)
--- NOTE | 2017-03-26 10:08 | Dialysis Note ---
Dialysis Note - Dialysis Note Ms. Winters is seen on hemodialysis. She has blood pressure 110 systolic. She does not have any significant fluid removed today. She is tolerating dialysis fairly well. She is arousable and does make eye contact but does not speak.
--- NOTE | 2017-03-26 12:15 | Hospitalist Progress Note ---
Assessment and Plan (1) ESRD (end stage renal disease) Status: Chronic Assessment and plan: Nephrology managing HD today Current Visit: No (2) Anemia Status: Chronic Assessment and plan: Stable Current Visit: No Qualifiers: Other causes of anemia: chronic disease, kidney (3) Shortness of breath Status: Resolved Current Visit: Yes (4) Pleural effusion Status: Resolved Assessment and plan: s/p thoracentesis Current Visit: Yes (5) Cerebrovascular disease Status: Acute Current Visit: Yes Hospitalist: Subjective Interval history: Yesterday patient with BP systolic 80s-90s. She remained asymptomatic. Seen this morning on HD. She is much more alert and awake. Will answer some basic yes and no questions. Exam - Constitutional Vitals: Period Temp Pulse Resp BP Sys/Romo Pulse Ox Last 24 Hr 97.0 F-98.9 F 67-90 16-22 80-93/38-48 96-99 General appearance: under weight - Head Head exam: Present: normocephalic, atraumatic - Eye Eye exam: Present: EOMI Pupils: Present: ELE - ENT ENT exam: Present: normal exam - Neck Neck exam: Present: normal inspection - Respiratory Respiratory exam: Present: clear to auscultation bilaterally. Absent: rhonchi, wheezes - Cardiovascular Cardiovascular exam: Present: regular rate and rhythm - GI/Abdominal GI/Abdominal exam: Present: normal bowel sounds, soft. Absent: tenderness, rebound - Extremities Exam Extremities exam: Present: normal inspection - Back Exam Back exam: Present: normal inspection - Neurological Exam Neurological exam: Present: alert, altered - Psychiatric Psychiatric exam: Present: normal affect - Skin Skin exam: Present: warm, intact Results - Labs CBC & BMP: 03/26/17 04:28 03/26/17 04:28 Specialty Discharge - Follow Up or Referrals
--- NOTE | 2017-03-26 12:32 | Neurology Progress Note ---
Neurology - PN : Subjective Interval history: Patient seems to be doing much better. She is more alert and awake and following commands. Eating better. Exam (Progress Note) - Constitutional Vitals: Period Temp Pulse Resp BP Sys/Romo Pulse Ox Last 24 Hr 97.0 F-98.9 F 67-90 16-22 80-93/38-48 96-99 Exam: GENERAL: Patient is in no acute distress. NECK: Neck is supple. There is no JVD. No carotid bruits present. No thyroid masses. CVS: First and second heart sounds are normal. There is no S3 present. Regular rate and rhythm. RESPIRATORY: Decreased breath sounds in the right ABDOMEN: Soft and non-tender. Bowel sounds are present. There is no hepatosplenomegaly. EXT: There is no palpable edema. Peripheral pulses are present. Skin: No rashes Central Nervous system: General: Alert and awake and following simple command Speech: None Comprehension: Fair Facial expressions: Normal Cranial Nerves: Pupils are equally reactive to light. Doll's head eye movements are positive. Right central facial weakness seen Motor: Bulk and Tone is normal. Strength cannot be assessed Sensory: Cannot be assessed Reflexes: 1+ and symmetrical Cerebellar function: Normal finger to nose and heel to fulton testing. Toes: Equivocal Gait: Cannot be assessed Results - Labs CBC & BMP: 03/26/17 04:28 03/26/17 04:28 Assessment and Plan (1) Acute CVA (cerebrovascular accident) Status: Acute Assessment and plan: Continue anticoagulation with Aggrenox No new recommendations from neuro standpoint Patient probably will require a swing bed placement before she go home Sign off please call as needed Current Visit: Yes Specialty Discharge - Follow Up or Referrals
[2017-03-27] MEDS: HEPARIN 5,000 UNIT/1 ML VIAL SUBCUT SCH ×2 (03:59→14:48)
[2017-03-27] MEDS: PIPERACILLIN/TAZOBACTAM 3,375 MG in SODIUM CHLORIDE 0.9% 100 ML IV SCH (04:01)
[2017-03-27 06:25] LABS: Basophils # 0.1 10*3/uL (0.0-0.2); Basophils % 1.1 % (0.0-0.8); Eosinophils # 0.4 10*3/uL (0.0-0.87); Eosinophils % 5.1 % (0.00-10.9); Hematocrit 33.4 VOL% (35.7-47.0); Hemoglobin 11.1 GM/DL (12.0-16.0); Immature Granulocytes % 4.1 %; Immature Granulocytes Absolute 0.33 #; Lymphocytes # 1.4 10*3/uL (1.4-4.0); Lymphocytes % 17.3 % (21.3-54.2); Mean Corpuscular HGB Conc 33.2 GM/DL (32-36); Mean Corpuscular Hemoglobin 31 PG (27-34); Monocytes # 1.7 10*3/uL (0.11-0.8); Monocytes % 21.4 % (1.7-12.7); Neutrophils # 4.1 10*3/uL (1.4-7.4); Platelet Count 116 T/CUMM (130-400); Red Blood Count 3.63 MC/CUMM (3.8-5.5); Red Cell Distribution Width 19.5 % (9.3-17.3)
[2017-03-27 06:31] LABS: Calcium 8.8 MG/DL (8.5-10.1); Magnesium 2.2 MG/DL (1.8-2.4)
[2017-03-27 06:32] LABS: Osmolality,Calculated 280.4 MOS/KG (273-304); Potassium 3.5 MMOL/L (3.5-5.1)
[2017-03-27] MEDS: LEVOTHYROXINE 25 MCG TABLET PO SCH (06:40)
[2017-03-27 07:13] LABS: Band Neutrophils 1 % (0-10); Eosinophils 6 % (0-10); Hypochromasia 1+; Lymphocytes 26 % (20-55); Macrocytosis 1+; Platelet Estimate Decreased; Segmented Neutrophils 56 % (50-85); Total Cells Counted 100
[2017-03-27] MEDS: DIPYRIDAMOLE/ASPIRIN 200-25 MG CAPSULE PO SCH ×2 (08:16→21:08)
[2017-03-27] MEDS: DOCUSATE SODIUM 100 MG CAPSULE PO SCH ×2 (08:16→21:08)
[2017-03-27] MEDS: POLYETHYLENE GLYCOL POWDER 17 GM PACK PO SCH (08:16)
[2017-03-27] MEDS: PANTOPRAZOLE 40 MG TABLET PO SCH (08:16)
[2017-03-27] MEDS: CALCIUM ACETATE 667 MG CAPSULE PO SCH ×3 (08:28→17:32)
[2017-03-27 09:35] LABS: Basophilic Stippling Few
[2017-03-27 09:36] LABS: Atypical Lymphocytes Few
--- NOTE | 2017-03-27 11:03 | Hospitalist Progress Note ---
Assessment and Plan (1) ESRD (end stage renal disease) Status: Chronic Assessment and plan: Nephrology managing Current Visit: No (2) Anemia Status: Chronic Assessment and plan: Stable Current Visit: No Qualifiers: Other causes of anemia: chronic disease, kidney (3) Shortness of breath Status: Resolved Current Visit: Yes (4) Pleural effusion Status: Resolved Assessment and plan: s/p thoracentesis Current Visit: Yes (5) Cerebrovascular disease Status: Acute Current Visit: Yes Hospitalist: Subjective Interval history: No acute events overnight. Patient awake and alert this morning. Daughter feeding her breakfast. Plan is for swing bed placement. Exam - Constitutional Vitals: Period Temp Pulse Resp BP Sys/Romo Pulse Ox Last 24 Hr 98.1 F-99.4 F 87-98 16-20 105-119/41-63 90-98 General appearance: under weight - Head Head exam: Present: normocephalic, atraumatic - Eye Eye exam: Present: EOMI Pupils: Present: ELE - ENT ENT exam: Present: normal exam - Neck Neck exam: Present: normal inspection - Respiratory Respiratory exam: Present: clear to auscultation bilaterally. Absent: wheezes - Cardiovascular Cardiovascular exam: Present: regular rate and rhythm - GI/Abdominal GI/Abdominal exam: Present: normal bowel sounds, soft. Absent: tenderness, rebound - Extremities Exam Extremities exam: Present: normal inspection - Back Exam Back exam: Present: normal inspection - Neurological Exam Neurological exam: Present: alert - Psychiatric Psychiatric exam: Present: normal affect, normal mood - Skin Skin exam: Present: warm, intact Results - Labs CBC & BMP: 03/27/17 06:02 03/27/17 06:02 Specialty Discharge - Follow Up or Referrals
--- NOTE | 2017-03-27 12:19 | Nephrology Progress Note ---
Nephrology - PN: Subj Interval history: She tires easily but has been more alert this morning. She is eating more when encouraged by family. Exam (PN)-Nephrology - Vital Signs Vital signs: Period Temp Pulse Resp BP Sys/Romo Pulse Ox Last 24 Hr 98.1 F-99.4 F 87-108 16-20 105-119/41-63 90-99 Exam: ENT: Normal Cardiovascular: Regular rate and rhythm. No murmur rub or gallop Lungs: Clear Extremities: No edema - Lab 03/27/17 06:02 03/27/17 06:02 Most recent lab results Calcium 8.8 MG/DL (8.5-10.1) 03/27/17 06:02 Magnesium 2.2 MG/DL (1.8-2.4) 03/27/17 06:02 Assessment and Plan (1) End-stage renal disease on hemodialysis Status: Acute Assessment and plan: 87-year-old woman admitted with: * ESRD. Dialysis MWF. * CVA. Neurology following. Evaluating for swing bed versus rehab * Pleural effusion. This is due to chronically low albumin * Pulmonary hypertension * Cardiomyopathy * Anemia Discussed with family Current Visit: Yes (2) Pleural effusion Status: Resolved Current Visit: Yes (3) Cerebrovascular disease Status: Acute Current Visit: Yes (4) Generalized weakness Status: Acute Current Visit: Yes (5) Anemia Status: Chronic Current Visit: No Qualifiers: Other causes of anemia: chronic disease, kidney (6) COPD (chronic obstructive pulmonary disease) Status: Chronic Current Visit: No Qualifiers: COPD type: COPD with acute exacerbation Qualified Code(s): J44.1 - Chronic obstructive pulmonary disease with (acute) exacerbation (7) Pulmonary hypertension Status: Chronic Current Visit: No Specialty Discharge - Follow Up or Referrals
[2017-03-27] MEDS: ONDANSETRON 4 MG/2 ML VIAL IV PRN (17:38)
--- NOTE | 2017-03-27 18:38 | Pulmonology Progress Note ---
Pulmonary - PN: Subj Interval history: This 87-year-old lady has a history of end-stage renal disease on dialysis. She has a severe cardiomyopathy congestive heart failure. She has had recurrent effusions and a recent stroke. Really very little change. Exam (Progress Note) - Constitutional Vitals: Period Temp Pulse Resp BP Sys/Romo Pulse Ox Last 24 Hr 98.1 F-99.4 F 79-108 16-20 94-119/34-63 91-100 Exam: Patient is drowsy but arousable vital signs are normal pupils react to light throat clear neck is supple chest reveals some mild bilateral rales and dullness. Heart irregular rhythm no murmurs abdomen soft no masses extremities she has 2+ peripheral edema calves nontender. Results - Labs CBC & BMP: 03/27/17 06:02 03/27/17 06:02 Lab Results: I have reviewed the past 24 hour labs Assessment and Plan (1) ESRD (end stage renal disease) Status: Chronic Assessment and plan: Dialysis per renal Current Visit: No (2) Left lower lobe pneumonia Status: Acute Assessment and plan: She completed empiric antibiotics. Current Visit: No (3) congestive heart failure Status: Acute Assessment and plan: Seems to be a little bit less short of breath. Current Visit: No (4) Cardiomyopathy Problem details: grade II diastolic dysfunction per ECHO Status: Chronic Assessment and plan: Underlying cause for her congestive heart failure along with renal failure. Current Visit: No Specialty Discharge - Follow Up or Referrals
[2017-03-28] MEDS: HEPARIN 5,000 UNIT/1 ML VIAL SUBCUT SCH ×2 (02:29→14:56)
[2017-03-28] MEDS: LEVOTHYROXINE 25 MCG TABLET PO SCH (06:35)
[2017-03-28] MEDS: PANTOPRAZOLE 40 MG TABLET PO SCH (08:34)
[2017-03-28] MEDS: DOCUSATE SODIUM 100 MG CAPSULE PO SCH ×2 (08:34→20:55)
[2017-03-28] MEDS: CALCIUM ACETATE 667 MG CAPSULE PO SCH ×3 (08:34→17:34)
[2017-03-28] MEDS: DIPYRIDAMOLE/ASPIRIN 200-25 MG CAPSULE PO SCH ×2 (08:34→20:55)
[2017-03-28] MEDS: POLYETHYLENE GLYCOL POWDER 17 GM PACK PO SCH (08:34)
--- NOTE | 2017-03-28 09:15 | Pulmonology Progress Note ---
Pulmonary - PN: Subj Interval history: This 87-year-old lady has a history of end-stage renal disease on dialysis. She has a severe cardiomyopathy congestive heart failure. She has had recurrent effusions and a recent stroke. Really very little change. 03/28/2017 end-stage cardiomyopathy with congestive heart failure getting dialysis. Stable from a pulmonary standpoint. We will sign off. Please call if needed further. Exam (Progress Note) - Constitutional Vitals: Period Temp Pulse Resp BP Sys/Romo Pulse Ox Last 24 Hr 97.2 F-98.8 F 79-108 15-22 93-119/34-58 93-100 Exam: Patient is drowsy but arousable. vital signs are normal. pupils react to light. throat clear neck is supple. chest reveals some mild bilateral rales and dullness. Heart irregular rhythm no murmurs abdomen soft no masses extremities she has 2+ peripheral edema calves nontender. Little change from yesterday. Results - Labs CBC & BMP: 03/27/17 06:02 03/27/17 06:02 Lab Results: I have reviewed the past 24 hour labs Assessment and Plan (1) ESRD (end stage renal disease) Status: Chronic Assessment and plan: Dialysis per renal 03/28/2017 continuing with dialysis. Current Visit: No (2) Left lower lobe pneumonia Status: Acute Assessment and plan: She completed empiric antibiotics. Current Visit: No (3) congestive heart failure Status: Acute Assessment and plan: Seems to be a little bit less short of breath. 03/28/2017 this is controlled with dialysis. Current Visit: No (4) Cardiomyopathy Problem details: grade II diastolic dysfunction per ECHO Status: Chronic Assessment and plan: Underlying cause for her congestive heart failure along with renal failure. Current Visit: No Specialty Discharge - Follow Up or Referrals
[2017-03-28] MEDS ORDERED: ALBUMIN 25% 25 GM in PREMIX 1 EACH IV PRN (11:32)
--- NOTE | 2017-03-28 12:02 | Hospitalist Progress Note ---
Assessment and Plan (1) ESRD (end stage renal disease) Status: Chronic Assessment and plan: Nephrology managing Current Visit: No (2) Anemia Status: Chronic Assessment and plan: Stable Current Visit: No (3) Shortness of breath Status: Resolved Current Visit: Yes (4) Pleural effusion Status: Resolved Assessment and plan: s/p thoracentesis Current Visit: Yes (5) Cerebrovascular disease Status: Acute Current Visit: Yes Hospitalist: Subjective Interval history: No acute events overnight. Patient remains awake and alert. HD today. Waiting on placement. Exam - Constitutional Vitals: Period Temp Pulse Resp BP Sys/Romo Pulse Ox Last 24 Hr 97.2 F-98.8 F 79-97 15-22 93-100/34-43 93-100 General appearance: under weight - Head Head exam: Present: normocephalic, atraumatic - Eye Eye exam: Present: EOMI Pupils: Present: ELE - ENT ENT exam: Present: normal exam - Neck Neck exam: Present: normal inspection - Respiratory Respiratory exam: Present: clear to auscultation bilaterally. Absent: rhonchi, wheezes - Cardiovascular Cardiovascular exam: Present: regular rate and rhythm - GI/Abdominal GI/Abdominal exam: Present: normal bowel sounds, soft. Absent: tenderness, rebound - Extremities Exam Extremities exam: Present: normal inspection - Back Exam Back exam: Present: normal inspection - Neurological Exam Neurological exam: Present: alert - Psychiatric Psychiatric exam: Present: normal affect, normal mood - Skin Skin exam: Present: warm, intact Results - Labs CBC & BMP: 03/27/17 06:02 03/27/17 06:02 Specialty Discharge - Follow Up or Referrals
[2017-03-28] MEDS ORDERED: SODIUM CHLORIDE 0.9% 100 ML IV ONE (17:41)
--- NOTE | 2017-03-28 19:33 | Nephrology Progress Note ---
Nephrology - PN: Subj Interval history: She was seen during dialysis. Blood pressure borderline low. IV albumin ordered. She is lethargic but arousable Exam (PN)-Nephrology - Vital Signs Vital signs: Period Temp Pulse Resp BP Sys/Romo Pulse Ox Last 24 Hr 97.7 F-98.8 F 87-97 16-20 91-100/39-43 93-100 Exam: General: Lethargic but arousable Cardiovascular: Regular rate and rhythm. No murmur rub or gallop Lungs: Clear Extremities: No edema - Lab 03/27/17 06:02 03/27/17 06:02 Most recent lab results Calcium 8.8 MG/DL (8.5-10.1) 03/27/17 06:02 Magnesium 2.2 MG/DL (1.8-2.4) 03/27/17 06:02 Assessment and Plan (1) End-stage renal disease on hemodialysis Status: Acute Assessment and plan: 87-year-old woman admitted with: * ESRD. Dialysis MWF. Stable during dialysis today * CVA. Neurology following. Evaluating for swing bed * Pleural effusion. This is due to chronically low albumin * Pulmonary hypertension * Cardiomyopathy * Anemia Current Visit: Yes (2) Pleural effusion Status: Resolved Current Visit: Yes (3) Cerebrovascular disease Status: Acute Current Visit: Yes (4) Generalized weakness Status: Acute Current Visit: Yes (5) Anemia Status: Chronic Current Visit: No (6) COPD (chronic obstructive pulmonary disease) Status: Chronic Current Visit: No Qualifiers: COPD type: COPD with acute exacerbation Qualified Code(s): J44.1 - Chronic obstructive pulmonary disease with (acute) exacerbation (7) Pulmonary hypertension Status: Chronic Current Visit: No Specialty Discharge - Follow Up or Referrals
[2017-03-29] MEDS: HEPARIN 5,000 UNIT/1 ML VIAL SUBCUT SCH (02:14)
[2017-03-29 04:59] LABS: Basophils # 0.1 10*3/uL (0.0-0.2); Basophils % 0.8 % (0.0-0.8); Eosinophils # 0.4 10*3/uL (0.0-0.87); Eosinophils % 4.1 % (0.00-10.9); Hematocrit 35.6 VOL% (35.7-47.0); Hemoglobin 11.3 GM/DL (12.0-16.0); Immature Granulocytes % 4.6 %; Immature Granulocytes Absolute 0.39 #; Lymphocytes # 1.5 10*3/uL (1.4-4.0); Lymphocytes % 17.1 % (21.3-54.2); Mean Corpuscular HGB Conc 31.7 GM/DL (32-36); Mean Corpuscular Hemoglobin 30 PG (27-34); Mean Corpuscular Volume 94.9 FL (87-102); Mean Platelet Volume 12.5 FL (9.6-12.0); Monocytes # 1.8 10*3/uL (0.11-0.8); Neutrophils # 4.4 10*3/uL (1.4-7.4); Neutrophils % 52.4 % (38.7-73.9); Platelet Count 120 T/CUMM (130-400); Red Blood Count 3.75 MC/CUMM (3.8-5.5); Red Cell Distribution Width 20.6 % (9.3-17.3); White Blood Count 8.5 T/CUMM (4-12)
[2017-03-29 05:29] LABS: Calcium 9.3 MG/DL (8.5-10.1); Magnesium 2.4 MG/DL (1.8-2.4); Osmolality,Calculated 281.1 MOS/KG (273-304)
[2017-03-29 05:39] LABS: Band Neutrophils 1 % (0-10); Eosinophils 2 % (0-10); Hypochromasia 1+; Lymphocytes 19 % (20-55); Segmented Neutrophils 62 % (50-85); Total Cells Counted 100
[2017-03-29 05:40] LABS: Ovalocytes Slight; Platelet Estimate Adequate
[2017-03-29 05:41] LABS: Macrocytosis 1+
[2017-03-29] MEDS: LEVOTHYROXINE 25 MCG TABLET PO SCH (06:32)
[2017-03-29] MEDS: DOCUSATE SODIUM 100 MG CAPSULE PO SCH (09:00)
[2017-03-29] MEDS: DIPYRIDAMOLE/ASPIRIN 200-25 MG CAPSULE PO SCH (09:00)
[2017-03-29] MEDS: POLYETHYLENE GLYCOL POWDER 17 GM PACK PO SCH (09:00)
[2017-03-29] MEDS: CALCIUM ACETATE 667 MG CAPSULE PO SCH (09:00)
[2017-03-29] MEDS: PANTOPRAZOLE 40 MG TABLET PO SCH (09:00)
--- NOTE | 2017-03-29 10:54 | Discharge Summary ---
<Lula Farias - Last Filed: 03/29/17 10:58> Hospital Course - Hospital Course Hospital Course: Ms. Winter is a 87-year-old female with a history of end-stage renal disease on HD, hypertension, COPD, cardiomyopathy, and congestive heart failure that presented to the ED on 03/15 complaining of a one-week history of progressive confusion and weakness. At the time the patient was accompanied by her son who stated that she had become increasingly confused over the past week. On examination in the ED the patient was slightly hypertensive but her labs were otherwise normal chest x-ray showed 'increasing effusions bilaterally and a CT of the chest revealed 'bilateral pleural effusions, atelectasis of the left lower lobe and lingula, appearance of the lung parenchyma has differential of infection versus edema with neoplastic etiology is not excluded'. 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 The patient was admitted to the hospitalist service for further evaluation and treatment. Neurology and nephrology were consulted initially and the patient was started on IV antibiotics (Vancomycin) and blood cultures were drawn. The patient had a lengthy hospital stay. The patient was dialyzed on 03/16. Patient also underwent a thoracentesis and 1200 cc of straw colored fluid was removed. MRI of the brain was performed on 03/17 and revealed "subacute infarction involving the medial cortex of the left occipital and temporal lobes and posterior cortex of the left occipital lobe is present with additional involvement of the thalamus suggested'. Repeat MRI of the brain reveals no change in size. Family also made patient DNR. Neurology saw the patient and EEG was ordered. Feeding tube was inserted for patient nutrition. Patient was also anticoagulated with Aggrenox. On 03/23, patient became short of breath with O2 sats in the 70s on 2 L. After oxygen was titrated up and patient sats were still low so patient was transferred to the ICU for close observation. Pulmonology was consulted to see the patient. Thoracentesis was performed 03/23, with relief of her respiratory symptoms. Patient was started on respiratory treatments. Pt's condition has improved. Throughout her stay she has become more alert and started following commands unlike admission. Today Ms. Winter is stable and she will be discharged to [facility] bed. Patient received HD yesterday. Respiratory status has remained stable. Today patient labs and vital signs are stable. Specialty Discharge - Follow Up or Referrals Discharge Plan - Discharge Data Disposition: Disch/Xfer-Ip Rehab Fac - Discharge Medications New Dipyridamole/Aspirin 200-25 [Aggrenox] 1 capsule PO BID #60 capsule Continue Calcium Acetate 2 capsule PO TID W/MEALS Acetaminophen Tab [Tylenol Tab] 650 mg PO Q6H PRN #0 tablet PRN Reason: Fever > 100.4 Or Headache Levothyroxine Tab [Synthroid Tab] 25 mcg PO DAILY@0700 #30 tablet Tramadol HCl [Tramadol Tab] 50 mg PO Q6H PRN #30 tablet PRN Reason: Pain Discontinued Metoprolol Tartrate Tab [Lopressor Tab] 25 mg PO QAM - Follow Up or Referral - Forms/Instructions Instructions: Ischemic Stroke (DC), Left Hemispheric Stroke (DC) Exam - Constitutional Vitals: Period Temp Pulse Resp BP Sys/Romo Pulse Ox Last 24 Hr 97.3 F-98.8 F 70-92 15-24 86-107/36-88 92-100 Discharge Results Procedures and tests throughout hospitalization: Pending Orders 03/15/17 15:47 Cytology Request Routine 03/16/17 09:00 AFB Culture/Smears Routine Fungal Culture w/ Prep Routine Labs on day of discharge: Labs from last 24 hours 03/29/17 03/29/17 04:42 04:42 WBC 8.5 RBC 3.75 L Hgb 11.3 L Hct 35.6 L MCV 94.9 MCH 30 MCHC 31.7 L RDW 20.6 H Plt Count 120 L MPV 12.5 H Neut % (Auto) 52.4 Lymph % (Auto) 17.1 L [place] % (Auto) 21.0 H Eos % (Auto) 4.1 Baso % (Auto) 0.8 Neut # (Auto) 4.4 Lymph # (Auto) 1.5 [place] # (Auto) 1.8 H Eos # (Auto) 0.4 Baso # (Auto) 0.1 Total Counted 100 Immature Gran % 4.6 Nucleated RBC % 0.0 Immature Gran # 0.39 Segmented Neutrophils 62 Band Neutrophils 1 Lymphocytes 19 L Monocytes 14 Eosinophils 2 Basophils 2.0 H Nucleated RBCs # 0.00 Platelet Estimate Adequate Hypochromasia 1+ Macrocytosis 1+ Ovalocytes Slight Sodium 142 Potassium 4.0 Chloride 107 Carbon Dioxide 25 Anion Gap 14.0 BUN 12 Creatinine 3.30 H GFR Calculation 10 BUN/Creatinine Ratio 3.00 L Glucose 87 Calculated Osmolality 281.1 Calcium 9.3 Magnesium 2.4 Preliminary micro results at discharge 03/16/17 09:00 Mycobacterial Culture - Preliminary Pleural Fluid No AFB isolated at 2 weeks 03/16/17 09:00 Fungal Culture - Preliminary Pleural Fluid No Fungus isolated at 1 week DS: Provider Date of admission: 03/15/17 16:00 Primary care physician: . No PCP Attending physician on admission: ALEXIS Isabel Consults: 03/15/17 17:08 Consult to Physician [CONS] Routine Comment: HD patient Consulting Provider: Maurice Miranda Consulting Provider Notified: Yes When should Consulting Provider be notified: Now Person Notified: [email or web address] called Date Notified: 03/16/17 Time Notified: 08:46 03/15/17 19:06 Consult to Physician [CONS] Routine Comment: altered mental status Consulting Provider: Antoine Álvarez Consulting Provider Notified: Yes When should Consulting Provider be notified: Now Person Notified: [email or web address] called Date Notified: 03/19/17 Time Notified: 10:04 Consult Notification Comment: julio called at 8:48 Dr Álvarez on [facility] 03/20/17 13:43 Consult to Physician [CONS] Routine Comment: large pleurale effusion Consulting Provider: Consult to Specialist Group: Interventional Radiology When should Consulting Provider be notified: Now 03/20/17 13:47 Consult to Physician [CONS] Routine Comment: pleural effusion Consulting Provider: Yash Perez Consulting Provider Notified: Yes When should Consulting Provider be notified: Now Consult to Specialist Group: Pulmonology When should Consulting Provider be notified: Now Person Notified: asim called Date Notified: 03/20/17 Time Notified: 15:40 03/21/17 12:41 Consult to Occupational Therapy [CONS] Routine Reason for Occupational Therapy: Evaluate and Treat Weakness Consult to Physical Therapy [CONS] Routine Reason for Physical Therapy: Evaluate and Treat 03/28/17 16:44 Consult to Case Mgmt/Social Srvs [CONS] Routine Reason for Case Mgmt/Social Srvs: Swingbed/SNF/Care Home Rehab Consult Comment: Swing Bed placement for Rehab Discharging clinician: Lula Farias NP <Cong Michel - Last Filed: 03/29/17 11:53> Hospital Course - Time spent with patient Time with patient DS: Less than 30 minutes Diagnosis - Discharge Diagnosis (1) ESRD (end stage renal disease) Status: Chronic (2) Anemia Status: Chronic (3) Shortness of breath Status: Resolved (4) Pleural effusion Status: Resolved (5) Cerebrovascular disease Status: Chronic Discharge Plan - Discharge Data Condition at Discharge: Stable Discharge Diet: low salt diet Activity: as per physical therapy Hygiene: no restrictions Weight Bearing at Discharge: weight bear as tolerated Contact your physician if you experience:: fever over 101, Shortness of breath Exam - Constitutional General appearance: under weight - Head Head exam: Present: normocephalic, atraumatic - Eye Eye exam: Present: EOMI Pupils: Present: ELE - ENT ENT exam: Present: normal exam - Neck Neck exam: Present: normal inspection - Respiratory Respiratory exam: Present: clear to auscultation bilaterally. Absent: wheezes - Cardiovascular Cardiovascular exam: Present: regular rate and rhythm - GI/Abdominal GI/Abdominal exam: Present: normal bowel sounds, soft. Absent: tenderness, rebound - Extremities Exam Extremities exam: Present: normal inspection - Back Exam Back exam: Present: normal inspection - Neurological Exam Neurological exam: Present: alert - Psychiatric Psychiatric exam: Present: normal affect, normal mood - Skin Skin exam: Present: warm, intact
[2017-03-29 12:00] VITALS: BP 90/48
--- NOTE | 2017-03-29 13:28 | Nephrology Progress Note ---
Nephrology - PN: Subj Interval history: No significant change in neurologic status. She is arousable. She has been eating fairly well with family assistance Exam (PN)-Nephrology - Vital Signs Vital signs: Period Temp Pulse Resp BP Sys/Romo Pulse Ox Last 24 Hr 97.3 F-98.8 F 70-92 15-24 86-107/36-88 92-100 Exam: ENT: Normal Cardiovascular: Regular rate and rhythm. No murmur rub or gallop Lungs: Clear Extremities: No edema - Lab 03/29/17 04:42 03/29/17 04:42 Most recent lab results Calcium 9.3 MG/DL (8.5-10.1) 03/29/17 04:42 Magnesium 2.4 MG/DL (1.8-2.4) 03/29/17 04:42 Assessment and Plan (1) End-stage renal disease on hemodialysis Status: Acute Assessment and plan: 87-year-old woman admitted with: * ESRD. Dialysis MWF. * CVA. Neurology following. Evaluating for swing bed * Pleural effusion. This is due to chronically low albumin * Pulmonary hypertension * Cardiomyopathy * Anemia (2) Pleural effusion Status: Resolved (3) Cerebrovascular disease Status: Chronic (4) Generalized weakness Status: Acute (5) Anemia Status: Chronic (6) COPD (chronic obstructive pulmonary disease) Status: Chronic Qualifiers: COPD type: COPD with acute exacerbation Qualified Code(s): J44.1 - Chronic obstructive pulmonary disease with (acute) exacerbation (7) Pulmonary hypertension Status: Chronic Specialty Discharge - Follow Up or Referrals
--- NOTE | 2017-04-02 16:42 | Physician Query Form ---
CLICK EDIT DOCUMENT TO SELECT QUERY ANSWER --> OK --> SIGN La Nena Rucker RN Clinical Slope Tender W) [phone] (f) [phone] [email or web address]: Make your selection(s) from the choices in EACH section by typing an "x" and enter comments in the comment section. Please use your independent medical judgment in providing your response. This request does not imply that any particular answer is desired or expected. CLINICAL INDICATORS: (Providers should not edit this section) Based on documentation of "Large left pleural effusion" "Acute shortness of breath" "Chronic COPD with acute exacerbation" "Patient;s O2 SATS were in the 70 's on2LNC. Oxygen was titrated up." "She was moved to ICU because of hypoxemia" Oxygen increased to 3LNC then to simple face mask at 6L. SATS on simple face mask ranged between 92-100%. If possible, please further clarify the type and acuity of respiratory diagnosis : ACUITY: ( ) Acute ( ) Chronic ( ) Acute on Chronic TYPE: ( ) Respiratory failure with hypoxia ( ) Respiratory failure with hypercapnia ( ) Respiratory Arrest ( ) Postprocedural/postoperative respiratory failure ( ) ARDS (Adult/Acute Respiratory Distress Syndrome) ( ) Other, please specify: ( ) Clinically unable to determine Recognized criteria for respiratory failure PH <7.35 or >7.45 PO2 <60 PCO2 >50 RR >24 O2 Sat <90% on RA or <95% on O2 Use of accessory muscles Unable to speak in full sentences Intubation is not required COMMENTS: PLEASE ALSO DOCUMENT RESPONSE IN PROGRESS NOTES AND/OR DISCHARGE SUMMARY Use of terms such as suspected, likely, or probable (associated with a specific diagnosis that is being evaluated, monitored, or treated as if it exists) are acceptable and can be restated in the discharge summary if not ruled out. MTDD
--- NOTE | 2017-04-04 08:29 | Physician Query Form ---
CLICK EDIT DOCUMENT TO SELECT QUERY ANSWER --> OK --> SIGN PROVIDERS: Make your selection(s) from the choices in EACH section by typing an "x" and enter comments in the comment section. Please use your independent medical judgment in providing your response. This request does not imply that any particular answer is desired or expected. CLINICAL INDICATORS: (Providers should not edit this section) Based on documentation of "Large left pleural effusion" "Acute shortness of breath" "Chronic COPD with acute exacerbation" "Patient;s O2 SATS were in the 70 's on2LNC. Oxygen was titrated up." "She was moved to ICU because of hypoxemia" Oxygen increased to 3LNC then to simple face mask at 6L. SATS on simple face mask ranged between 92-100%. If possible, please further clarify the type and acuity of respiratory diagnosis : ACUITY: ( x) Acute ( ) Chronic ( ) Acute on Chronic TYPE: (x ) Respiratory failure with hypoxia ( ) Respiratory failure with hypercapnia ( ) Respiratory Arrest ( ) Postprocedural/postoperative respiratory failure ( ) Respiratory Insufficiency ( ) ARDS (Adult/Acute Respiratory Distress Syndrome) ( ) Other, please specify: ( ) Clinically unable to determine Recognized criteria for respiratory failure PH <7.35 or >7.45 PO2 <60 PCO2 >50 RR >24 O2 Sat <90% on RA or <95% on O2 Use of accessory muscles Unable to speak in full sentences Intubation is not required COMMENTS: PLEASE ALSO DOCUMENT RESPONSE IN PROGRESS NOTES AND/OR DISCHARGE SUMMARY Use of terms such as suspected, likely, or probable (associated with a specific diagnosis that is being evaluated, monitored, or treated as if it exists) are acceptable and can be restated in the discharge summary if not ruled out. MTDD
== END 2017-03-29 12:45 | disposition swing bed (61) | DRG 186 ==
LOC: N.ED 13:32 → N.EDINP 15:59 → SUATTDRO 15:59 → N.3E 16:30 → N.ICU 03-23 04:07 → N.3E 03-23 20:59
PROVIDERS: ADMIT Physician Assistant; ATTEND Internal Medicine
PROC: IRTHORA (2017-03-23 13:00)